=== PATIENT | male | born 2000 | race Two or more races ===

== ENCOUNTER 2022-06-02 20:17 | Inpatient (IN) | payer OTHER, SELFPAY ==
[2022-06-02 20:20] VITALS: BP 158/74; PULSE 84; RESP 16; TEMP 36; O2SAT 97; BMI 31.5
[2022-06-02 20:21] VITALS: BP 158/74; PULSE 84; RESP 16; TEMP 36; O2SAT 97
--- NOTE | 2022-06-02 20:57 | CT_ITS ---
INDICATION: Lower abdominal pain beginning 2 weeks ago. At first intermittent. Fever last night. Vomiting and diarrhea with elevated white count. Takes medications for rheumatoid arthritis. EXAMINATION: CT ABDOMEN AND PELVIS WITH CONTRAST - CT Abdomen And Pelvis W/ Contrast Injection TECHNIQUE: Helically acquired images were obtained of the abdomen and pelvis following IV contrast. A radiation dose optimization technique was used for this scan. IV Contrast dosage and agent: 100 mL of Isovue 370 Oral contrast: With COMPARISON: None. FINDINGS: LOWER CHEST: Lung bases are clear. No cardiomegaly or pericardial effusion. LIVER: Homogeneous. No focal mass. GALLBLADDER AND BILIARY TREE: No calcified gallstones. No gallbladder distension or wall edema. No intra- or extrahepatic biliary ductal dilation. PANCREAS: No focal cystic or solid mass. SPLEEN: Normal size without focal cystic or solid mass. ADRENAL GLANDS: No nodules. KIDNEYS AND URETERS: Normal renal size and position. No hydronephrosis. Normal visualized ureters. PERITONEUM: No ascites or free air. No other fluid collection. BOWEL: Normal stomach. Normal small bowel. Laboratory change is seen involving the cecum. There is multiple prominent lymph nodes in the cecal mesocolon. The remainder of the colon is unremarkable. Possibility of appendicitis cannot be entirely ruled out although the appendix is obscured by the inflammatory process. LYMPH NODES: No enlarged mesenteric or retroperitoneal lymph nodes. VESSELS: Aorta is non-dilated. URINARY BLADDER: Unremarkable. REPRODUCTIVE ORGANS: Normal prostate. ABDOMINAL WALL: No discrete abdominal or pelvic wall hernia. BONES: No lytic or blastic abnormality. CT/Abdomen/Pelvis WITH Contrast IMPRESSION: Inflammatory changes involving the cecum. The appendix is not seen and the possibility of the findings are secondary to appendicitis cannot be entirely ruled out but thought less likely. Electronically Signed: Calos Medina DO at 23:02 EDT Reading Location ID and State: [address] [place] [address] Tel [phone], Service support ,
[2022-06-02 21:12] LABS: Bacteria 0 SEEN /hpf (None Seen); Mucous, Urine 0 SEEN /hpf (<or=2+)
[2022-06-02 21:17] LABS: Absolute Lymphocyte Count 0.92 X10^3/uL (0.83-4.51); Basophil# 0.04 X10^3/uL; Basophil% 0.2 % (0-1); Eosinophil# 0.05 X10^3/uL; Eosinophils% 0.2 % (0-5); Hematocrit 43.9 % (40-54); Lymphocyte # 0.92 X10^3/ul (0.83-4.51); Lymphocyte % 4.3 % (19-41); Mean Corp Hgb Conc 34.2 g/dL (32-36); Mean Corpuscular Hgb 29.5 pg (27.0-32.0); Mean Corpuscular Volume 86.4 fL (80-94); Mean Platelet Vol. 10.3 fl (6.2-12.0); Monocyte# 2.39 X10^3/uL; Monocyte% 11.1 % (0-10); NRBC Flagged by Analyzer 0 % (0-5); Neutrophil # 17.99 X10^3/uL (2.7-7.7); Neutrophil % 83.8 % (47-70); POSITIVE DIFFERENTIAL YES; Platelet Count 361 K/mm3 (150-450); RBC Distribution Width CV 13.8 % (11.6-14.6); RBC Distribution Width SD 43.4 fl (35.1-43.9); Red Blood Count 5.08 M/mm3 (4.6-6.2); White Blood Count 21.5 K/mm3 (4.4-11.0)
[2022-06-02] MEDS: Ondansetron 4 MG/2 ML Vial IV (21:26)
[2022-06-02] MEDS: 0.9% Normal Saline 1,000 ML 1000 ML IV (21:30)
[2022-06-02 21:31] LABS: Color, Urine Yellow (Yellow); Glucose, Dipstick Normal (Normal); Leukocyte Esterase-Dipstick 25 /ul (Negative); Nitrite-Dipstick Negative (Negative); Occult Blood-Urine 10 /ul (Negative); Protein-Dipstick 100 mg/dl (Negative); Specific Gravity, Urine 1.015 (1.002-1.030); Urine Clarity Sl. Cloudy (Clear); Urine Urobilinogen 8 mg/dl (Normal)
[2022-06-02 21:33] LABS: Differential Indicated SCAN CRITERIA MET
[2022-06-02 21:41] LABS: Urine Bilirubin Dipstick 1 mg/dL (Negative)
[2022-06-02 21:42] LABS: Ketone-Dipstick 150 mg/dl (Negative)
[2022-06-02 21:43] LABS: Red Blood Cells-Urine 0-5 SEEN /hpf (0-5); Squamous Epithelial Cells - UA 0-5 SEEN /hpf (0-5); White Blood Cells 0-5 SEEN /hpf (0-5)
[2022-06-02 21:46] LABS: ALB/GLOB Ratio 0.7 RATIO (0.9-2.4); AST(SGOT) 9 U/L (15-37); Alanine Aminotransfer ALT/SGPT 13 U/L (16-61); Albumin, Serum 3.2 g/dL (3.2-5.0); Alkaline Phosphatase 100 U/L (45-117); Anion Gap 12 (5-15); BUN 9 mg/dL (7-18); BUN/Creat Ratio 12.3 RATIO (10-20); Calcium,Total 9.4 mg/dL (8.5-10.1); Chloride 103 mmol/L (98-107); Creatinine, Serum 0.73 mg/dL (0.70-1.30); EST Glomerular Filtration Rate 146 mL/min (>60); Est Glom Filt Rate - Afr Amer 176 mL/min (>60); Estimated Creatinine Clearance 168.06 ml/min; Globulin 4.8 g/dL (2.2-4.2); Glucose 100 mg/dL (74-106); Potassium 3.6 mmol/L (3.5-5.1); Sodium Level 136 mmol/L (136-145)
[2022-06-02 22:09] LABS: Differential Comment SCANNED
[2022-06-02 22:17] VITALS: BP 122/71; PULSE 81; RESP 16; O2SAT 99
[2022-06-02 23:39] VITALS: BP 120/70; PULSE 89; RESP 16; TEMP 36.8; O2SAT 100
--- NOTE | 2022-06-02 23:47 | ED.VIS.GI ---
HPI HPI - GI History of Present Illness Chief Complaint: Abd Pain Abdominal Pain/Flank Pain Onset: Weeks (2) Context: Gradual Onset Timing: Continuous Quality: Aching Location: RLQ Worsened by: - (Pressure and pushing on the area) Relieved by: - (Heating pad) Nausea/Vomiting/Emesis GI Symptom: Positive for Nausea and Vomiting Diarrhea/Melena/Hematochezia GI Symptom: Positive for Diarrhea; Negative for Melena or Hematochezia Associated Symptoms Associated Symptoms: Negative for Dysuria, Frequency or Hematuria Narrative Narrative: Patient presents with abdominal pain, nausea, vomiting, and diarrhea that became worse yesterday. Patient states he has been having some mild abdominal pain for the past couple weeks. Patient states that his pain is mainly in the right lower abdomen. Patient states he has had some pain in the left lower abdomen but the right is much worse. Patient describes his pain as aching. Patient states it is worse whenever he pushes on the area or applies pressure. Patient states it is better with heat. Patient admits to some nausea and vomiting. Patient admits to decreased appetite. Patient admits to some diarrhea. Patient denies any hematemesis or coffee-ground emesis. Patient denies any melena or hematochezia. Patient denies any urinary complaints. [facility] Medical History (Updated 06/03/22 @ 01:[address] Sunil Jones DO) Rheumatoid arthritis Home Medications Orencia 06/02/22 [History Last Taken Unknown] folic acid 06/02/22 [History Last Taken Unknown] methotrexate 06/02/22 [History Last Taken Unknown] Allergy/AdvReac Type Severity Reaction Status Date / Time ANTS Allergy Rash Uncoded 06/02/22 20:18 PEACHES Allergy Swelling Uncoded 06/02/22 20:18 Surgical History (Updated 06/02/22 @ 23:[address] Sunil Jones DO) [place] teeth extracted Social History Smoking Status: Never smoker ROS ROS ED Constitutional Constitutional ED: Reports fever(s); Denies chills Eyes Eyes: Denies blurry vision or change in vision ENT ENT ED: Denies rhinorrhea or sore throat Cardiovascular Cardiovascular: Denies chest pain or palpitations Respiratory/Chest Respiratory/Chest: Denies cough or dyspnea Gastrointestinal Gastrointestinal: Reports abdominal pain, diarrhea, nausea and vomiting; Denies melena Genitourinary Genitourinary ED: Denies dysuria or hematuria Musculoskeletal Musculoskeletal: Denies back pain or neck pain Integumentary Denies abscess or rash Neurologic Neurologic: Denies headache(s) or weakness Allergic/Immunologic Allergic/Immunologic ED: Denies mouth swelling or urticaria EXAM Physical Exam Const Vital Signs: 06/02/22 20:20 06/02/22 20:21 06/02/22 22:17 Temperature 96.8 F L 96.8 F L Temperature Source Temporal Temporal Pulse Rate 84 84 81 Respiratory Rate 16 16 16 Blood Pressure 158/74 H 158/74 H 122/71 H Blood Pressure Mean 102 102 88 Pulse Ox 97 97 99 Oxygen Delivery Method Room Air Room Air Room Air 06/02/22 23:39 06/03/22 00:33 Temperature 98.2 F Temperature Source Oral Pulse Rate 89 79 Respiratory Rate 16 16 Blood Pressure 120/70 133/79 H Blood Pressure Mean 86 97 Pulse Ox 100 98 Oxygen Delivery Method Room Air Positive well nourished and well developed General Appearance ED: well developed HEENT Reports moist mucous membranes Neck supple and no JVD Resp normal respiratory effort and clear to auscultation bilaterally Cardio regular rate, regular rhythm and no murmurs GI normal to inspection, nondistended, normoactive bowel sounds Palpation: soft and tender RLQ, Obturator sign and Rovsing's sign (Mild); Negative for guarding or rebound tenderness present Extremity normal to inspection General Extremety ED: Negative for edema or tenderness General Extremity: Negative for edema Neuro oriented x3, CN's II-XII intact bilaterally and no sensory deficits noted Sensorium / Orientation: alert Motor Exam: strength 5/5 throughout Psych mental status grossly normal Skin no rashes or lesions noted MDM MDM MDM Narrative Medical decision making narrative: Patient was given IV fluids and Zofran here. CBC shows a leukocytosis of 21.5. Comprehensive metabolic profile was essentially within normal limits. Urinalysis shows ketones of 150 but there is no evidence of urinary tract infection or hematuria. CT scan of the abdomen pelvis was obtained. There are inflammatory changes of the cecum. The appendix was not well visualized. This was interpreted by the radiologist and reviewed by myself. Case was discussed with Dr. Cavanaugh from general surgery. He will be into evaluate the patient. Did not want me to start antibiotics until he saw the patient. Patient was advised of the plan. He is agreeable with this. Dr. Cavanaugh evaluated the patient. He will admit the patient to his service. He recommended obtaining stool studies and starting Zosyn. He also recommended consultation to the hospitalist to follow along with his rheumatoid arthritis medications. Hospitalist was paged. Patient will be admitted. Patient understood and was agreeable with the plan. All questions were answered. Lab Data Attestation: I reviewed the patient's lab results. Labs: Laboratory Results - last 24 hr 06/02/22 06/02/22 06/02/22 20:48 20:48 20:48 WBC 21.5 H RBC 5.08 Hgb 15.0 Hct 43.9 MCV 86.4 MCH 29.5 MCHC 34.2 RDW Std Deviation 43.4 RDW Coeff of Willy 13.8 Plt Count 361 MPV 10.3 Immature Gran % (Auto) 0.400 Neut % (Auto) 83.8 H Lymph % (Auto) 4.3 L [place] % (Auto) 11.1 H Eos % (Auto) 0.2 Baso % (Auto) 0.2 Absolute Neuts (auto) 18.0 H Absolute Lymphs (auto) 0.92 Nucleated RBC % 0 Differential Comment SCANNED Diff Path Review May foll Sodium 136 Potassium 3.6 Chloride 103 Carbon Dioxide 21.0 Anion Gap 12 BUN 9 Creatinine 0.73 Estim Creat Clear Calc 168.06 Est GFR (MDRD) Af Amer 176 Est GFR (MDRD) Non-Af 146 BUN/Creatinine Ratio 12.3 Glucose 100 Calcium 9.4 Total Bilirubin 1.00 AST 9 L ALT 13 L Alkaline Phosphatase 100 Total Protein 8.0 Albumin 3.2 Globulin 4.8 H Albumin/Globulin Ratio 0.7 L Urine Color Yellow Urine Clarity Sl. Cloudy Urine pH 6.0 Ur Specific [place] 1.015 Urine Protein 100 H Urine Glucose (UA) Normal Urine Ketones 150 A* Urine Occult Blood 10 H Urine Nitrite Negative Urine Bilirubin 1 H Urine Urobilinogen 8 H Ur Leukocyte Esterase 25 H Urine RBC 0-5 SEEN Urine WBC 0-5 SEEN Ur Squamous Epith Cells 0-5 SEEN Urine Bacteria 0 SEEN Urine Mucus 0 SEEN Radiography Diagnostic Testing: Clinical Impression(s) from Imaging Studies Abdomen/Pelvis CT 06/02/22 20:57 IMPRESSION: Inflammatory changes involving the cecum. The appendix is not seen and the possibility of the findings are secondary to appendicitis cannot be entirely ruled out but thought less likely. Electronically Signed: Calos Medina DO at 23:02 EDT Reading Location ID and State: [address] [place] [address] Tel [phone], Service support , Discharge Plan Dx/Rx/DC Orders Clinical Impression: Right lower quadrant abdominal pain, Leukocytosis, Rheumatoid arthritis Disposition Disposition: Acute Care Hospital [facility]
[2022-06-03] VITALS (7 sets, daily range): BP systolic 106–138; BP diastolic 51–89; PULSE 79–107; RESP 16–18; TEMP 36.7–39.2; O2SAT 98–100; BMI 27.2
--- NOTE | 2022-06-03 01:01 | PCM.HP.STD ---
HPI - General General Date of Admission: 06/03/22 Date of Service: 06/03/22 Chief Complaint: Right lower quadrant abdominal pain HPI Narrative CLAUS ZHANG, is a 21 M, w PMH of RA on Methotrexate and Orencia, who presents a history of right lower quadrant abdominal pain that has gradually progressed in intensity and over the last 24 to 48 hours become associated with anorexia, nausea, vomiting, nonbloody diarrhea, and low-grade fevers. He states that initially he had right lower quadrant pain (it was nonmigratory) associated with fatigue and weakness. When the intensity grew into begin vomiting with low-grade fevers he decided to seek evaluation. He reports a T-max of 100.0 Fahrenheit at home. ER work-up is notable for CBC that demonstrates a significantly elevated white blood cell count at 21,000. CT imaging was obtained of the abdomen pelvis with p.o. and IV contrast. This shows rather diffuse inflammation of the cecum and several prominent mesenteric lymph nodes. The appendix is nonvisualized and radiology reports segmental colonic inflammation with appendicitis felt to be less likely, but based on nonvisualization and the extensive inflammatory process could not exclude appendicitis. Surgery is asked to evaluate for this possibility. Patient has a history of rheumatoid arthritis on methotrexate and Orencia. He reports this diagnosis was made early on in life?approximately age 9-10. He states that he has remained on a relatively stable dose of these medications. He denies any sick contacts. 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 His ethnic background is [place] and [place]. He denies any family history of inflammatory bowel disease, diverticulitis, or colon cancer. [facility] Medical History (Updated 06/03/22 @ 01:[address] Sunil Jones, ) Rheumatoid arthritis Home Medications Orencia 06/02/22 [History Last Taken Unknown] folic acid 06/02/22 [History Last Taken Unknown] methotrexate 06/02/22 [History Last Taken Unknown] Allergy/AdvReac Type Severity Reaction Status Date / Time ANTS Allergy Rash Uncoded 06/02/22 20:18 PEACHES Allergy Swelling Uncoded 06/02/22 20:18 Surgical History (Updated 06/02/22 @ 23:[address] Sunil Jones, DO) [place] teeth extracted Social History Smoking Status: Never smoker ROS Constitutional Constitutional: Reports anorexia, fatigue, fever(s), malaise and weakness Gastrointestinal Gastrointestinal: Reports abdominal pain, diarrhea, nausea and vomiting; Denies hematemesis, hematochezia or melena Genitourinary Genitourinary: Denies dysuria, urinary frequency or urinary urgency Hematologic/Lymphatic Hematologic/Lymphatic: Denies lymphadenopathy Vital Signs Vital Signs Vital Signs: 06/02/22 20:20 06/02/22 20:21 06/02/22 22:17 Temperature 96.8 F L 96.8 F L Temperature Source Temporal Temporal Pulse Rate 84 84 81 Respiratory Rate 16 16 16 Blood Pressure 158/74 H 158/74 H 122/71 H Blood Pressure Mean 102 102 88 Pulse Ox 97 97 99 Oxygen Delivery Method Room Air Room Air Room Air 06/02/22 23:39 06/03/22 00:33 Temperature 98.2 F Temperature Source Oral Pulse Rate 89 79 Respiratory Rate 16 16 Blood Pressure 120/70 133/79 H Blood Pressure Mean 86 97 Pulse Ox 100 98 Oxygen Delivery Method Room Air Weight Weight: 220 lb Body Mass Index (BMI) 31.5 Physical Exam Const alert, oriented x3 and no apparent distress General Appearance: cooperative Resp No normal respiratory effort GI GI Narrative: Numerous abdominal striae are present. No scars. Nondistended. Soft and minimally tender to palpation over McBurney's point (patient reports a baseline tenderness only 4/10 that goes to a 6/10 with palpation). He describes some mild rebound tenderness. Negative obturator sign. Mildly positive psoas sign. Inspection: Negative for abdominal distention Results Lab / Micro Data Result Diagrams: 06/02/22 20:48 06/02/22 20:48 Labs: Laboratory Results - last 24 hr 06/02/22 20:48: WBC 21.5 H, RBC 5.08, Hgb 15.0, Hct 43.9, MCV 86.4, MCH 29.5, MCHC 34.2, RDW Std Deviation 43.4, RDW Coeff of Willy 13.8, Plt Count 361, MPV 10.3, Immature Gran % (Auto) 0.400, Neut % (Auto) 83.8 H, Lymph % (Auto) 4.3 L, [place] % (Auto) 11.1 H, Eos % (Auto) 0.2, Baso % (Auto) 0.2, Absolute Neuts (auto) 18.0 H, Absolute Lymphs (auto) 0.92, Nucleated RBC % 0, Differential Comment SCANNED, Diff Path Review November06/02/22 20:48: Sodium 136, Potassium 3.6, Chloride 103, Carbon Dioxide 21.0, Anion Gap 12, BUN 9, Creatinine 0.73, Estim Creat Clear Calc 168.06, Est GFR (MDRD) Af Amer 176, Est GFR (MDRD) Non-Af 146, BUN/Creatinine Ratio 12.3, Glucose 100, Calcium 9.4, Total Bilirubin 1.00, AST 9 L, ALT 13 L, Alkaline Phosphatase 100, Total Protein 8.0, Albumin 3.2, Globulin 4.8 H, Albumin/Globulin Ratio 0.7 L 06/02/22 20:48: Urine Color Yellow, Urine Clarity Sl. Cloudy, Urine pH 6.0, Ur Specific [place] 1.015, Urine Protein 100 H, Urine Glucose (UA) Normal, Urine Ketones 150 A*, Urine Occult Blood 10 H, Urine Nitrite Negative, Urine Bilirubin 1 H, Urine Urobilinogen 8 H, Ur Leukocyte Esterase 25 H, Urine RBC 0-5 SEEN, Urine WBC 0-5 SEEN, Ur Squamous Epith Cells 0-5 SEEN, Urine Bacteria 0 SEEN, Urine Mucus 0 SEEN Radiology Impression Abdomen/Pelvis CT 06/02/22 20:57 IMPRESSION: Inflammatory changes involving the cecum. The appendix is not seen and the possibility of the findings are secondary to appendicitis cannot be entirely ruled out but thought less likely. Electronically Signed: Calos Medina DO at 23:02 EDT Reading Location ID and State: [facility] / [place] Tel [phone], Service support , Assessment & Plan Assessment/Plan (1) Right lower quadrant abdominal pain: PLAN: This is a 21-year-old male who presents with a several week history of right lower quadrant pain that has progressively intensified and become associated with low-grade fevers, nausea, vomiting, diarrhea, and anorexia. ED work-up remarkable for significant leukocytosis with markedly abnormal appearance to patient's cecum and nonvisualization of the appendix. On exam patient has only minimally increased tenderness over McBurney's point and area of presumed inflammation with palpation. Because of this I do not believe the patient has peritonitis. I find his whole presentation very atypical for appendicitis. Differential would include infectious colitis, typhlitis, appendicitis with contained perforation, early presentation of inflammatory bowel disease, mesenteric adenitis, or other. I have shared with patient that based on his exam I believe the best course of action would be to pursue conservative measures by collecting stool studies and initiating empiric antibiotic coverage. I would plan to conduct serial abdominal exams and see that patient has appropriate response to these antibiotics. Otherwise to take patient immediately to surgery, I would be concerned that intraoperative findings would lead to more surgery then would ultimately be justified at this point. Patient expresses understanding of this information and we will therefore proceed with the plan as follows: Neuro: As needed Dilaudid Pulm/CV: No current issues FEN/GI: Trend electrolytes with daily labs, n.p.o., serial abdominal exams : No current issues Heme/ID: Trend CBC, collect stool studies, initiate empiric antibiotic coverage with Zosyn, obtain medicine consult for advising on rheumatoid medications?would be inclined to hold these medications in anticipation of possible operation Endo: No current issues Proph: Apply SCDs Dispo: Admit to inpatient Charges/Coding Visit Charges Inpatient E&M: 13486 Init Hosp L2
--- NOTE | 2022-06-03 01:06 | PCM.PN.HOSP ---
Subjective Subjective Patient is a 21-year-old white male who presented to the emergency department [facility] on 06/02/2022 complaining of abdominal pain in the right lower quadrant, vomiting, and diarrhea that became worse the day prior to it presentation. He indicated he been having some mild abdominal pain for the past couple weeks but it became more severe and that is why he came the emergency department. He reported the pain was aching in nature and worse whenever it is palpated. He indicated it was improved with heat. He had decreased appetite but denied any hematemesis. He also had no melena or hematochezia. He was found to have a leukocytosis of 21.5 the rest of his labs were essentially normal. His urinalysis shows ketones but no evidence of urinary tract infection. A CT of the abdomen pelvis was performed and shows inflammatory changes near the cecum but the appendix is not well visualized. General surgery was consulted and the plan is admit to general surgery and to obtain stool studies and start Zosyn. It was requested that we follow along for his rheumatoid arthritis. Patient was seen in the emergency department. He is still having some right lower quadrant tenderness. Nausea seems to be a bit improved. He appears comfortable and nontoxic at the time of my evaluation. He indicates he has not been taking his Orencia lately because he is ran out and shipment is pending. He is also unable to recall the dose of his methotrexate. Objective Data Objective Data Vital Signs: Vital Signs Temp Pulse Resp BP Pulse Ox O2 Del Method 98.2 F 79 16 133/79 H 98 Room Air 06/02/22 23:39 06/03/22 00:33 06/03/22 00:33 06/03/22 00:33 06/03/22 00:33 06/03/22 00:33 Oxygen Delivery Method Room Air Weight: 99.79 kg Body Mass Index (BMI) 31.5 Intake & Output: Intake and Output for Last 24 Hours 06/01/22 06/02/22 06/03/22 23:59 23:59 23:59 Intake Total 1000 / 1000 Balance 1000 / 1000 Lab / Micro Data Result Diagrams: 06/02/22 20:48 06/02/22 20:48 Labs: Laboratory Results - last 24 hr 06/02/22 20:48: WBC 21.5 H, RBC 5.08, Hgb 15.0, Hct 43.9, MCV 86.4, MCH 29.5, MCHC 34.2, RDW Std Deviation 43.4, RDW Coeff of Willy 13.8, Plt Count 361, MPV 10.3, Immature Gran % (Auto) 0.400, Neut % (Auto) 83.8 H, Lymph % (Auto) 4.3 L, [place] % (Auto) 11.1 H, Eos % (Auto) 0.2, Baso % (Auto) 0.2, Absolute Neuts (auto) 18.0 H, Absolute Lymphs (auto) 0.92, Nucleated RBC % 0, Differential Comment SCANNED, Diff Path Review November06/02/22 20:48: Sodium 136, Potassium 3.6, Chloride 103, Carbon Dioxide 21.0, Anion Gap 12, BUN 9, Creatinine 0.73, Estim Creat Clear Calc 168.06, Est GFR (MDRD) Af Amer 176, Est GFR (MDRD) Non-Af 146, BUN/Creatinine Ratio 12.3, Glucose 100, Calcium 9.4, Total Bilirubin 1.00, AST 9 L, ALT 13 L, Alkaline Phosphatase 100, Total Protein 8.0, Albumin 3.2, Globulin 4.8 H, Albumin/Globulin Ratio 0.7 L 06/02/22 20:48: Urine Color Yellow, Urine Clarity Sl. Cloudy, Urine pH 6.0, Ur Specific [place] 1.015, Urine Protein 100 H, Urine Glucose (UA) Normal, Urine Ketones 150 A*, Urine Occult Blood 10 H, Urine Nitrite Negative, Urine Bilirubin 1 H, Urine Urobilinogen 8 H, Ur Leukocyte Esterase 25 H, Urine RBC 0-5 SEEN, Urine WBC 0-5 SEEN, Ur Squamous Epith Cells 0-5 SEEN, Urine Bacteria 0 SEEN, Urine Mucus 0 SEEN Radiography Diagnostic Testing: Radiology Impression Abdomen/Pelvis CT 06/02/22 20:57 IMPRESSION: Inflammatory changes involving the cecum. The appendix is not seen and the possibility of the findings are secondary to appendicitis cannot be entirely ruled out but thought less likely. Electronically Signed: Calos Medina DO at 23:02 EDT Reading Location ID and State: [address] [place] [address] Tel [phone], Service support , Physical Exam Const alert, oriented x3, no apparent distress and well nourished Constitutional Narrative: Young white male lying in bed, very pleasant, nontoxic, appears comfortable at this time HEENT head/scalp atraumatic and moist oral mucous membranes Head and Scalp: normocephalic Resp normal respiratory effort, no retractions, no use of accessory muscles and clear to auscultation bilaterally Auscultation: Negative for crackles, rales, rhonchi or wheezes Cardio regular rate, regular rhythm, S1 normal heart sound, S2 normal heart sound, no murmurs, no rub, no gallops and no clicks GI GI Narrative: Right lower quadrant tenderness with some rebound, no distention, abdomen is soft, bowel sounds are normoactive Extremity no clubbing, cyanosis or edema Extremity Narrative: 2+ pedal pulses Neuro oriented x3, moves all extremities, no focal motor deficits and no sensory deficits noted Speech: speech normal Psych affect normal Assessment & Plan Assessment/Plan (1) Right lower quadrant abdominal pain: (2) Leukocytosis: (3) Rheumatoid arthritis: PLAN: Plan Right lower quadrant pain -CT abdomen pelvis shows inflammatory changes in the cecum -Stool studies pending -Patient initiated on Zosyn -Pain management per primary service--> Dr. Cavanaugh Leukocytosis -Antibiotics as above -Stool studies pending History of rheumatoid arthritis -Patient takes Orencia at baseline -This is a once a week injectable -Hold for the time being -Continue home methotrexate--> will need to find out the dosing before we can initiate this -Continue home folic acid--> anticipate this will be 1 mg but will need to clarify prior to initiating -Patient is unable to remember his dosing for methotrexate or folic acid at this time DVT prophylaxis -Low risk with age -Encourage ambulation Charges/Coding Visit Charges Inpatient E&M: 78849 Subs Hosp L2
[2022-06-03 01:40] LABS: Magnesium 2.2 mg/dL (1.6-2.6)
[2022-06-03] MEDS: 0.9% Normal Saline 1,000 ML 125 ML IV ×3 (02:52→18:05)
--- NOTE | 2022-06-03 07:25 | PCM.PN.HOSP ---
Subjective Subjective Follow-up for right lower quadrant pain. Patient admitted with severe abdominal pain which is ongoing for 2 weeks but got worse for last 2 days. Objective Data Objective Data Vital Signs: Vital Signs Temp Pulse Resp BP Pulse Ox O2 Del Method 98.8 F 95 18 138/89 H 100 Room Air 06/03/22 02:43 06/03/22 02:43 06/03/22 02:43 06/03/22 02:43 06/03/22 02:43 06/03/22 02:43 Oxygen Delivery Method Room Air Weight: 190 lb 0.615 oz Body Mass Index (BMI) 27.2 Intake & Output: Intake and Output for Last 24 Hours 06/01/22 06/02/22 06/03/22 23:59 23:59 23:59 Intake Total 1000 / 1000 100.5 / 100.5 Output Total 0 / 0 Balance 1000 / 1000 100.5 / 100.5 Lab / Micro Data Result Diagrams: 06/02/22 20:48 06/02/22 20:48 Labs: Laboratory Results - last 24 hr 06/02/22 20:41: Phosphorus 3.0, Magnesium 2.2 06/02/22 20:48: WBC 21.5 H, RBC 5.08, Hgb 15.0, Hct 43.9, MCV 86.4, MCH 29.5, MCHC 34.2, RDW Std Deviation 43.4, RDW Coeff of Willy 13.8, Plt Count 361, MPV 10.3, Immature Gran % (Auto) 0.400, Neut % (Auto) 83.8 H, Lymph % (Auto) 4.3 L, [place] % (Auto) 11.1 H, Eos % (Auto) 0.2, Baso % (Auto) 0.2, Absolute Neuts (auto) 18.0 H, Absolute Lymphs (auto) 0.92, Nucleated RBC % 0, Differential Comment SCANNED, Diff Path Review November06/02/22 20:48: Sodium 136, Potassium 3.6, Chloride 103, Carbon Dioxide 21.0, Anion Gap 12, BUN 9, Creatinine 0.73, Estim Creat Clear Calc 168.06, Est GFR (MDRD) Af Amer 176, Est GFR (MDRD) Non-Af 146, BUN/Creatinine Ratio 12.3, Glucose 100, Calcium 9.4, Total Bilirubin 1.00, AST 9 L, ALT 13 L, Alkaline Phosphatase 100, Total Protein 8.0, Albumin 3.2, Globulin 4.8 H, Albumin/Globulin Ratio 0.7 L 06/02/22 20:48: Urine Color Yellow, Urine Clarity Sl. Cloudy, Urine pH 6.0, Ur Specific [place] 1.015, Urine Protein 100 H, Urine Glucose (UA) Normal, Urine Ketones 150 A*, Urine Occult Blood 10 H, Urine Nitrite Negative, Urine Bilirubin 1 H, Urine Urobilinogen 8 H, Ur Leukocyte Esterase 25 H, Urine RBC 0-5 SEEN, Urine WBC 0-5 SEEN, Ur Squamous Epith Cells 0-5 SEEN, Urine Bacteria 0 SEEN, Urine Mucus 0 SEEN Micro: Microbiology 06/03/22 01:50 Stool Enteric Bacteriology - Preliminary 06/03/22 01:50 Stool C. difficile DNA Amplification - Final Radiography Diagnostic Testing: Radiology Impression Abdomen/Pelvis CT 06/02/22 20:57 IMPRESSION: Inflammatory changes involving the cecum. The appendix is not seen and the possibility of the findings are secondary to appendicitis cannot be entirely ruled out but thought less likely. Electronically Signed: Calos Medina DO at 23:02 EDT Reading Location ID and State: [address] [place] [address] Tel [phone], Service support , Physical Exam Narrative The patient was admitted with right lower quadrant abdominal pain associated with nausea, vomiting, nonbloody diarrhea low-grade fever, T-max 100 Fahrenheit. RLQ for 2 weeks then progressed worse over 24 to 48 hours prior to admission. CT abdomen and pelvis with p.o. and IV contrast was done in ED and individually reviewed. It shows diffuse inflammation of the cecum which reported as segmental colonic inflammation and prominent mesenteric lymph nodes. Appendicitis less likely. Patient is admitted and surgical service. Patient also has history of rheumatoid arthritis diagnosed at age of 9-10. 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 Currently no pain Physical exam General: Alert, Oriented x3, Cooperative HEENT: Atraumatic, PERRLA, EOMI, Normocephalic Oral: Oral mucosa moist. No Gingival or Mucosal Lesions/ Ulcerations Neck: Supple, No JVD, Negative Carotid Bruits Lungs: Air entry diminished in bilateral lung bases. No crepitation/rhonchi Cardiovascular: Regular rate, Regular Rhythm, Normal S1, Normal S2, No murmurs Abdomen: Bowel Sounds Present, Soft, Non Tender, Non-Distended : No renal angle tenderness. No suprapubic tenderness. Extremities: No edema, Capillary Refill Less than 3 Seconds Skin: No rashes, No breakdown Musculoskeletal: No Tenderness over his small bony joints especially on bilateral wrist. No synovitis. ROM full. Muscle strength 5/5 at major joints. Neurological: Cranial nerves II-XII grossly intact, DTR 2+/4 and Symmetrical, Neuro grossly intact Psych/Mental Status: Normal Affect, Appropriate. Assessment & Plan Assessment/Plan (1) Right lower quadrant abdominal pain: (2) Leukocytosis: (3) Rheumatoid arthritis: PLAN: Plan This 21-year-old gentleman admitted with right lower quadrant abdominal pain progressively worsening for 2 weeks along with fever, nausea, vomiting and nonbloody diarrhea. 1 acute RLQ abdominal pain due to acute C. difficile colitis: Patient is being admitted MedSurg floor. Patient has significant leukocytosis. Stool for C. difficile antigen AMB positive. Negative C. difficile toxin, positive PCR. Enteric bacteriology panel negative. Patient did not had any exposure of his knowledge but he lives in dormitory. Discussed with surgeon Dr. Cavanaugh and agreed on vancomycin 125 mg p.o. every 6 hourly for 10 days. I also discussed with Dr. Castelan as patient on immunosuppressant methotrexate and abatacept and he said to talk with seedling puller regarding immunosuppressant/biologic medications 2. Rheumatoid arthritis on immunosuppressant medication: Patient on methotrexate, folic acid and abatacept (Orencia once a week injectable medicine) as home medication. Patient has history of bilateral wrist synovitis and arthritis which is well controlled with these medications. Abatacept and methotrexate is immunosuppressant and will hold it for now. Patient follows seedling puller in [place]. We will try to contact him. 3. DVT low risk Total time of the visit including total time spent in counseling or coordination of care, (more than 50% of the total time, spent in obtaining medical information from nurses and other ancillary care providers,explaining to the patient about labs, imaging, diagnosis and management of active complex medical conditions), discussion with surgeon, ID, review of labs and imaging is 40 minutes. Charges/Coding Visit Charges Inpatient E&M: 06898 Subs Hosp L3
--- NOTE | 2022-06-03 10:40 | CASEMGMT ---
RN ISHMAEL Face to Face with patient for initial transition planning/care coordination assessment. RN CM introduced self and role at [facility]. Patient lying in bed, alert and oriented. Patient willing to participate in assessment and is able to answer all questions appropriately. Care providers, pharmacy, and demographics verified. Patient wishes to discharge home, denies need for home health at this time. Patient states he has no further needs or concerns at this time. CM to follow for discharge planning needs that may arise. PCP: Has PCP back in [place], follows with [facility] Specialists: none Preferred Pharmacy: [facility] Insurance: [employer] Prescription Benefit: yes Living Will/HPOA: none LNOK: Mother Living Arrangements: Patient is currently a student at the [employer] staying in a 2nd floor dorm. Patient states he is independent and able to ambulate stairs. Transportation: [employer] or friend DME/HHC: Patient denies DME. Disposition Plan: Patient to discharge home with family support and follow-up plans in place. Diane LUIS, RN, CM
--- NOTE | 2022-06-03 10:48 | PCM.PN.SRG ---
Subjective Subjective Patient seen and examined during AM rounds. He reports ongoing abdominal discomfort and minimal appetite. He reports that he did have a bowel movement was able to submit a stool sample in his ER visit earlier this morning. He also reports that a doctor came to his room to tell him that he has infectious colitis. Objective Data Objective Data Vital Signs: Vital Signs Temp Pulse Resp BP Pulse Ox O2 Del Method 98.8 F 95 18 138/89 H 100 Room Air 06/03/22 02:43 06/03/22 02:43 06/03/22 02:43 06/03/22 02:43 06/03/22 02:43 06/03/22 02:43 Oxygen Delivery Method Room Air Weight: 190 lb 0.615 oz Body Mass Index (BMI) 27.2 Intake & Output: Intake and Output for Last 24 Hours 06/01/22 06/02/22 06/03/22 23:59 23:59 23:59 Intake Total 1000 / 1000 100.5 / 100.5 Output Total 0 / 0 Balance 1000 / 1000 100.5 / 100.5 Lab / Micro Data Result Diagrams: 06/02/22 20:48 06/02/22 20:48 Labs: Laboratory Results - last 24 hr 06/02/22 20:41: Phosphorus 3.0, Magnesium 2.2 06/02/22 20:48: WBC 21.5 H, RBC 5.08, Hgb 15.0, Hct 43.9, MCV 86.4, MCH 29.5, MCHC 34.2, RDW Std Deviation 43.4, RDW Coeff of Willy 13.8, Plt Count 361, MPV 10.3, Immature Gran % (Auto) 0.400, Neut % (Auto) 83.8 H, Lymph % (Auto) 4.3 L, [place] % (Auto) 11.1 H, Eos % (Auto) 0.2, Baso % (Auto) 0.2, Absolute Neuts (auto) 18.0 H, Absolute Lymphs (auto) 0.92, Nucleated RBC % 0, Differential Comment SCANNED, Diff Path Review November06/02/22 20:48: Sodium 136, Potassium 3.6, Chloride 103, Carbon Dioxide 21.0, Anion Gap 12, BUN 9, Creatinine 0.73, Estim Creat Clear Calc 168.06, Est GFR (MDRD) Af Amer 176, Est GFR (MDRD) Non-Af 146, BUN/Creatinine Ratio 12.3, Glucose 100, Calcium 9.4, Total Bilirubin 1.00, AST 9 L, ALT 13 L, Alkaline Phosphatase 100, Total Protein 8.0, Albumin 3.2, Globulin 4.8 H, Albumin/Globulin Ratio 0.7 L 06/02/22 20:48: Urine Color Yellow, Urine Clarity Sl. Cloudy, Urine pH 6.0, Ur Specific [place] 1.015, Urine Protein 100 H, Urine Glucose (UA) Normal, Urine Ketones 150 A*, Urine Occult Blood 10 H, Urine Nitrite Negative, Urine Bilirubin 1 H, Urine Urobilinogen 8 H, Ur Leukocyte Esterase 25 H, Urine RBC 0-5 SEEN, Urine WBC 0-5 SEEN, Ur Squamous Epith Cells 0-5 SEEN, Urine Bacteria 0 SEEN, Urine Mucus 0 SEEN Micro: Microbiology 06/03/22 01:50 Stool Enteric Bacteriology - Final 06/03/22 01:50 Stool C. difficile GDH Antigen & Toxins - Final 06/03/22 01:50 Stool C. difficile DNA Amplification - Final Radiography Diagnostic Testing: Radiology Impression Abdomen/Pelvis CT 06/02/22 20:57 IMPRESSION: Inflammatory changes involving the cecum. The appendix is not seen and the possibility of the findings are secondary to appendicitis cannot be entirely ruled out but thought less likely. Electronically Signed: Calos Medina DO at 23:02 EDT Reading Location ID and State: [address] [place] [address] Tel [phone], Service support , Physical Exam Const oriented x3 Constitutional Narrative: No distress at rest Resp normal respiratory effort GI GI Narrative: Tenderness with palpation of right lower quadrant Assessment & Plan Assessment/Plan (1) C. difficile colitis: PLAN: Patient with severe C. difficile colitis?as based on white blood cell count greater than 15,000 and radiographic appearance of the cecum. Patient has no history of recent antibiotic use or no proximity to healthcare settings so this should be a community-acquired infection. This is probably related to patient's relatively immunocompromise state and on both Orencia and methotrexate for rheumatoid arthritis. After conferencing with infectious disease and hospitalist service, we will plan to put patient on vancomycin 125 mg p.o. every 6 hours x10 days. (2) Right lower quadrant abdominal pain: PLAN: Given the above finding of C. difficile colitis, this makes a diagnosis of acute appendicitis much less likely and we will plan to pursue treatment for C. difficile with vancomycin p.o. monotherapy. We will continue serial abdominal exams. (3) Rheumatoid arthritis: PLAN: Patient on concurrent Orencia and methotrexate therapy. I have concerns about continuing these medications amidst a severe C. difficile infection. Infectious disease recommended conferencing with patient's primary temperature inspector about the severity of patient's rheumatoid arthritis before making any decision on holding these DMARD medications. Hospitalist service will plan to initiate this communication with patient's temperature inspector who is located in [place]. Charges/Coding Visit Charges Inpatient E&M: 57362 Subs Hosp L2
[2022-06-03] MEDS: HYDROmorphone 0.5 MG/0.5 ML SYRINGE IV ×2 (10:54→15:36)
[2022-06-03] MEDS: 0.9% Saline Lock 10 ML Syringe IV ×2 (10:54→15:35)
[2022-06-03] MEDS: Ondansetron 4 MG/2 ML Vial IV (10:55)
[2022-06-03] MEDS: Vancomycin 125 MG/5 ML Susp PO.SYRINGE PO ×2 (11:57→18:01)
[2022-06-03 12:39] LABS: Pathologist Review Reviewed
[2022-06-03] MEDS: Acetaminophen 500 MG Tablet PO (15:37)
[2022-06-04] VITALS (9 sets, daily range): BP systolic 116–142; BP diastolic 62–90; PULSE 92–104; RESP 18; TEMP 36.9–37.7; O2SAT 96–100
[2022-06-04] MEDS: Vancomycin 125 MG/5 ML Susp PO.SYRINGE PO ×4 (00:19→17:41)
[2022-06-04] MEDS: Acetaminophen 500 MG Tablet PO (00:22)
[2022-06-04] MEDS: 0.9% Normal Saline 1,000 ML 125 ML IV ×3 (02:04→19:24)
[2022-06-04 06:40] LABS: Absolute Lymphocyte Count 2.26 X10^3/uL (0.83-4.51); Absolute Neutrophil Count 12.6 X10^3/uL (2.0-7.7); Basophil# 0.03 X10^3/uL; Basophil% 0.2 % (0-1); Eosinophil# 0.02 X10^3/uL; Eosinophils% 0.1 % (0-5); Hematocrit 40.3 % (40-54); Hemoglobin 13.2 g/dL (13.0-16.5); Lymphocyte # 2.26 X10^3/ul (0.83-4.51); Lymphocyte % 13.1 % (19-41); Mean Corp Hgb Conc 32.8 g/dL (32-36); Mean Corpuscular Hgb 29.1 pg (27.0-32.0); Mean Corpuscular Volume 88.8 fL (80-94); Mean Platelet Vol. 10.9 fl (6.2-12.0); Monocyte# 2.22 X10^3/uL; Monocyte% 12.9 % (0-10); NRBC Flagged by Analyzer 0 % (0-5); Neutrophil % 73.2 % (47-70); POSITIVE DIFFERENTIAL YES; Platelet Count 345 K/mm3 (150-450); RBC Distribution Width CV 13.8 % (11.6-14.6); RBC Distribution Width SD 44.7 fl (35.1-43.9); Red Blood Count 4.54 M/mm3 (4.6-6.2); White Blood Count 17.2 K/mm3 (4.4-11.0)
[2022-06-04 06:48] LABS: Differential Indicated SCAN CRITERIA MET
[2022-06-04 07:08] LABS: Anion Gap 11 (5-15); BUN 2 mg/dL (7-18); BUN/Creat Ratio 3.5 RATIO (10-20); Calcium,Total 8.8 mg/dL (8.5-10.1); Chloride 105 mmol/L (98-107); Creatinine, Serum 0.58 mg/dL (0.70-1.30); EST Glomerular Filtration Rate 191 mL/min (>60); Est Glom Filt Rate - Afr Amer 231 mL/min (>60); Estimated Creatinine Clearance 211.52 ml/min; Glucose 89 mg/dL (74-106); Potassium 3.3 mmol/L (3.5-5.1); Sodium Level 138 mmol/L (136-145)
--- NOTE | 2022-06-04 08:19 | PN.HOSP_ITS ---
Subjective Subjective Follow-up for abdominal pain mostly due to C. difficile colitis Patient is still has abdominal pain mainly over right lower quadrant 5-7/10 intensity, mainly intermittent, colicky in nature. Has 2-3 liquid bowel mov ement. Objective Data Objective Data Vital Signs: Vital Signs Temp Pulse Resp BP Pulse Ox O2 Del Method 98.7 F 92 18 123/62 H 100 Room Air 06/04/22 05:10 06/04/22 05:10 06/04/22 05:10 06/04/22 05:10 06/04/22 05:10 06/04/22 05:10 Oxygen Delivery Method Room Air Weight: 190 lb 0.615 oz Body Mass Index (BMI) 27.2 Intake & Output: Intake and Output for Last 24 Hours 06/02/22 06/03/22 06/04/22 23:59 23:59 23:59 Intake Total 1000 / 1000 2930.5 / 2930.5 1297.92 / 1297.92 Output Total 0 / 0 Balance 1000 / 1000 2930.5 / 2930.5 1297.92 / 1297.92 Medical Nutrition Assessment Dietitian: Malnutrition Criteria Met Start: 06/03/22 11:51 Freq: Status: Active Protocol: Document 06/03/22 11:51 GIA (Rec: 06/03/22 11:51 SLA [id number]) Nutrition Malnutrition Evidence of Malnutrition Exists Yes Malnutrition (moderate): Acute Illness/Injury Evidenced By Suboptimal Energy Intake ( Moderate),Weight Loss (Severe) Clinical Problem Acute Disease or Injury Related Malnutrition Etiology related to acute illness and increased stress in college and pt with suboptimal energy intake and frequently skipping regular meals. Signs/Symptoms as evidenced by <50% po intake x > 1 mo and 15.6% wt loss x 2 months. Status Active Problem Recommendation Dietitian Recommendations/Changes As medically able, rec TAYA to Transitional with goal of Regular diet Will provide 8 oz ensure clear tid w/ meals for increased nutrition if consumed Lab / Micro Data Result Diagrams: 06/04/22 05:55 06/04/22 05:55 Labs: Laboratory Results - last 24 hr 06/02/22 20:48: Diff Path Review Reviewed 06/04/22 05:55: WBC 17.2 H, RBC 4.54 L, Hgb 13.2, Hct 40.3, MCV 88.8, MCH 29.1, MCHC 32.8, RDW Std Deviation 44.7 H, RDW Coeff of Willy 13.8, Plt Count 345, MPV 10.9, Immature Gran % (Auto) 0.500, Neut % (Auto) 73.2 H, Lymph % (Auto) 13.1 L, [place] % (Auto) 12.9 H, Eos % (Auto) 0.1, Baso % (Auto) 0.2, Absolute Neuts (auto) 12.6 H, Absolute Lymphs (auto) 2.26, Nucleated RBC % 0 06/04/22 05:55: Sodium 138, Potassium 3.3 L, Chloride 105, Carbon Dioxide 22.0, Anion Gap 11, BUN 2 L, Creatinine 0.58 L, Estim Creat Clear Calc 211.52, Est GFR (MDRD) Af Amer 231, Est GFR (MDRD) Non-Af 191, BUN/Creatinine Ratio 3.5 L, Glucose 89, Calcium 8.8 Micro: Microbiology 06/03/22 01:50 Stool Enteric Bacteriology - Final 06/03/22 01:50 Stool C. difficile GDH Antigen & Toxins - Final 06/03/22 01:50 Stool C. difficile DNA Amplification - Final Physical Exam Narrative Physical exam General: Alert, Oriented x3, Cooperative HEENT: Atraumatic, PERRLA, EOMI, Normocephalic Oral: Oral mucosa moist. No Gingival or Mucosal Lesions/ Ulcerations Neck: Supple, No JVD, Negative Carotid Bruits Lungs: Air entry diminished in bilateral lung bases. No crepitation/rhonchi Cardiovascular: Regular rate, Regular Rhythm, Normal S1, Normal S2, No murmurs Abdomen: Bowel Sounds Present, Soft, tenderness present over right lower quadrant. Mild guarding but no rigidity. : No renal angle tenderness. No suprapubic tenderness. Extremities: No edema, Capillary Refill Less than 3 Seconds Skin: No rashes, No breakdown Musculoskeletal: No Tenderness over his small bony joints especially on bilateral wrist. No synovitis. ROM full. Muscle strength 5/5 at major joints. Neurological: Cranial nerves II-XII grossly intact, DTR 2+/4 and Symmetrical, Neuro grossly intact Psych/Mental Status: Normal Affect, Appropriate. Assessment & Plan Assessment/Plan (1) Right lower quadrant abdominal pain: (2) Leukocytosis: (3) Rheumatoid arthritis: PLAN: Plan This 21-year-old gentleman was admitted with right lower quadrant abdominal pain associated with nausea, vomiting, nonbloody diarrhea low-grade fever, T-max 100 Fahrenheit. RLQ for 2 weeks then progressed worse over 24 to 48 hours prior to admission. CT abdomen and pelvis with p.o. and IV contrast was done in ED and individually reviewed. It shows diffuse inflammation of the cecum which reported as segmental colonic inflammation and prominent mesenteric lymph nodes. Appendicitis less likely. Patient is admitted in surgical service. 1 Acute RLQ abdominal pain due to acute C. difficile colitis: Patient is being admitted MedSur floor. Patient has significant leukocytosis. Stool for C. difficile antigen AMB positive. Negative C. difficile toxin, positive PCR. Enteric bacteriology panel negative. Patient did not had any exposure of his knowledge but he lives in dormitory. Discussed with surgeon Dr. Cavanaugh and agreed on vancomycin 125 mg p.o. every 6 hourly for 10 days. I also discussed with Dr. Castelan as patient on immunosuppressant methotrexate and abatacept and he said to talk with biscuit machine operator regarding immunosuppressant/biologic medications 06/04: Patient is gradually improving but he still has intermittent colicky abdominal pain and diarrhea. Continue p.o. vancomycin 2. Rheumatoid arthritis on immunosuppressant medication: Patient on methotrexate, folic acid and abatacept (Orencia once a week injectable medicine) as home medication. Patient has history of bilateral wrist synovitis and arthritis which is well controlled with these medications. Abatacept and methotrexate is immunosuppressant and will hold it for now. Patient follows biscuit machine operator in [place]. We will try to contact him. Patient also has history of rheumatoid arthritis diagnosed at age of 9-10. 06/04: Patient biscuit machine operator is Dr. Mina Johnson in [place], [place]. Patient is in the college year but his home is in [place] where he follows biscuit machine operator every 3 months. Currently patient does not have his phone number or contact number but he said he will get from his relative and give it to me. 3. DVT low risk Charges/Coding Visit Charges Inpatient E&M: 04386 Subs Hosp L2
[2022-06-04] MEDS: Potassium Chloride Oral Tablet 20 MEQ 40 MEQ PO ×2 (08:48→12:10)
[2022-06-04 09:11] LABS: Magnesium 2.2 mg/dL (1.6-2.6); Phosphorus 2.8 mg/dL (2.5-4.9)
[2022-06-04] MEDS: Folic Acid 1 MG Tablet PO (10:25)
[2022-06-04] MEDS: Ensure Clear 120 ML Liquid PO ×3 (10:25→17:41)
[2022-06-04 10:43] LABS: Differential Comment SCANNED
--- NOTE | 2022-06-04 11:57 | PCM.PN.SRG ---
Subjective Subjective patient states that he has improved, however still with abdominal pain Objective Data Objective Data Vital Signs: Vital Signs Temp Pulse Resp BP Pulse Ox O2 Del Method 98.4 F 100 18 132/64 H 99 Room Air 06/04/22 08:51 06/04/22 08:51 06/04/22 08:51 06/04/22 08:51 06/04/22 08:51 06/04/22 08:51 Oxygen Delivery Method Room Air Weight: 86.2 kg Body Mass Index (BMI) 27.2 Intake & Output: Intake and Output for Last 24 Hours 06/02/22 06/03/22 06/04/22 23:59 23:59 23:59 Intake Total 1000 / 1000 2930.5 / 2930.5 2297.92 / 2297.92 Output Total 0 / 0 Balance 1000 / 1000 2930.5 / 2930.5 2297.92 / 2297.92 Medical Nutrition Assessment Dietitian: Malnutrition Criteria Met Start: 06/03/22 11:51 Freq: Status: Active Protocol: Document 06/03/22 11:51 GIA (Rec: 06/03/22 11:51 SLA [id number]) Nutrition Malnutrition Evidence of Malnutrition Exists Yes Malnutrition (moderate): Acute Illness/Injury Evidenced By Suboptimal Energy Intake ( Moderate),Weight Loss (Severe) Clinical Problem Acute Disease or Injury Related Malnutrition Etiology related to acute illness and increased stress in college and pt with suboptimal energy intake and frequently skipping regular meals. Signs/Symptoms as evidenced by <50% po intake x > 1 mo and 15.6% wt loss x 2 months. Status Active Problem Recommendation Dietitian Recommendations/Changes As medically able, rec TAYA to Transitional with goal of Regular diet Will provide 8 oz ensure clear tid w/ meals for increased nutrition if consumed Lab / Micro Data Attestation: I reviewed the patient's lab results. Result Diagrams: 06/04/22 05:55 06/04/22 05:55 Labs: Laboratory Results - last 24 hr 06/02/22 20:48: Diff Path Review Reviewed 06/04/22 05:55: WBC 17.2 H, RBC 4.54 L, Hgb 13.2, Hct 40.3, MCV 88.8, MCH 29.1, MCHC 32.8, RDW Std Deviation 44.7 H, RDW Coeff of Willy 13.8, Plt Count 345, MPV 10.9, Immature Gran % (Auto) 0.500, Neut % (Auto) 73.2 H, Lymph % (Auto) 13.1 L, [place] % (Auto) 12.9 H, Eos % (Auto) 0.1, Baso % (Auto) 0.2, Absolute Neuts (auto) 12.6 H, Absolute Lymphs (auto) 2.26, Nucleated RBC % 0, Differential Comment SCANNED, Diff Path Review November06/04/22 05:55: Sodium 138, Potassium 3.3 L, Chloride 105, Carbon Dioxide 22.0, Anion Gap 11, BUN 2 L, Creatinine 0.58 L, Estim Creat Clear Calc 211.52, Est GFR (MDRD) Af Amer 231, Est GFR (MDRD) Non-Af 191, BUN/Creatinine Ratio 3.5 L, Glucose 89, Calcium 8.8 06/04/22 05:55: Phosphorus 2.8, Magnesium 2.2 Micro: Microbiology 06/03/22 01:50 Stool Enteric Bacteriology - Final 06/03/22 01:50 Stool C. difficile GDH Antigen & Toxins - Final 06/03/22 01:50 Stool C. difficile DNA Amplification - Final Physical Exam Const alert and oriented x3 General Appearance: cooperative HEENT normocephalic Neck supple Resp normal respiratory effort Effort and Inspection: able to speak in complete sentences GI GI Narrative: abdomen is soft but with rebound tenderness in RLQ but no peritoneal signs Assessment & Plan Assessment/Plan (1) C. difficile colitis: PLAN: see below (2) Right lower quadrant abdominal pain: PLAN: see below PLAN: Plan continue present therapy
--- NOTE | 2022-06-04 15:42 | CASEMGMT ---
Addendum entered by Yfn Lobo 06/04/22 16:47: Dr Foster e-scribed Vanco capsules x 4 capsules to [facility], so pt can order picker/assembler tomorrow (if ready for discharge) and can take until Vanco Liquid is available @ [facility] on Monday. Call placed to [facility] for [place] check on the Vanco capsules. Per pharmacy, vanco capsules also do not require a prior auth and cost for 4 capsules is $7.24. SRINIVASA QUIÑONES to room. Pt made aware of above all of the above and aware the liquid, the he will order picker/assembler on Monday is $60. He voices understanding and states it is affordable. He denies having other discharge planning needs. Reed LUIS RN, CM Original Note: SRINIVASA QUIÑONES NOTE: Per Dr Foster, pt may be medically ready for discharge tomorrow. Vanc liquid has been e-scribed to [facility]. RN ISHMAEL placed call to [facility] and spoke w/Lois. Per Lois, vanco went through with insurance and no prior-auth needed. Co-pay is $60. She states they do not have any Vanco liquid available, they would need to order it, and the earliest they would have it is Monday. Dr Foster notified and SRINIVASA QUIÑONES inquired if pt would be able to discharge home on Vanco capsules vs liquid. Dr Foster states he prefers Vanco liquid and asked SRINIVASA QUIÑONES to try and find another pharmacy that has it available. SRINIVASA QUIÑONES placed calls to the following pharmacies: [facility], [facility], [facility], and [facility]. None of them have Vanco liquid in stock. Dr Foster notified. Reed LUIS RN, CM
[2022-06-05] MEDS: Vancomycin 125 MG/5 ML Susp PO.SYRINGE PO ×3 (00:36→11:18)
[2022-06-05 03:49] VITALS: BP 111/63; PULSE 100; RESP 18; TEMP 36.8; O2SAT 100
[2022-06-05 03:52] VITALS: BP 111/63; PULSE 100; RESP 18; TEMP 36.8; O2SAT 100
[2022-06-05] MEDS: 0.9% Normal Saline 1,000 ML 125 ML IV ×3 (03:54→20:37)
[2022-06-05 07:22] LABS: Absolute Lymphocyte Count 1.67 X10^3/uL (0.83-4.51); Absolute Neutrophil Count 9.6 X10^3/uL (2.0-7.7); Basophil# 0.03 X10^3/uL; Basophil% 0.2 % (0-1); Eosinophil# 0.08 X10^3/uL; Eosinophils% 0.6 % (0-5); Hematocrit 38.9 % (40-54); Hemoglobin 13.2 g/dL (13.0-16.5); Lymphocyte # 1.67 X10^3/ul (0.83-4.51); Lymphocyte % 12.6 % (19-41); Mean Corp Hgb Conc 33.9 g/dL (32-36); Mean Corpuscular Hgb 29.5 pg (27.0-32.0); Mean Corpuscular Volume 86.8 fL (80-94); Mean Platelet Vol. 10.8 fl (6.2-12.0); Monocyte# 1.86 X10^3/uL; NRBC Flagged by Analyzer 0 % (0-5); Neutrophil # 9.56 X10^3/uL (2.7-7.7); Neutrophil % 72.2 % (47-70); POSITIVE DIFFERENTIAL YES; Platelet Count 379 K/mm3 (150-450); RBC Distribution Width CV 13.7 % (11.6-14.6); RBC Distribution Width SD 43.5 fl (35.1-43.9); Red Blood Count 4.48 M/mm3 (4.6-6.2); White Blood Count 13.3 K/mm3 (4.4-11.0)
[2022-06-05 07:30] LABS: Differential Indicated SCAN CRITERIA MET
[2022-06-05 07:37] LABS: Anion Gap 10 (5-15); BUN 2 mg/dL (7-18); BUN/Creat Ratio 3.8 RATIO (10-20); Calcium,Total 8.7 mg/dL (8.5-10.1); Chloride 104 mmol/L (98-107); Creatinine, Serum 0.53 mg/dL (0.70-1.30); EST Glomerular Filtration Rate 212 mL/min (>60); Est Glom Filt Rate - Afr Amer 256 mL/min (>60); Estimated Creatinine Clearance 231.47 ml/min; Glucose 91 mg/dL (74-106); Potassium 3.7 mmol/L (3.5-5.1); Sodium Level 140 mmol/L (136-145)
[2022-06-05] MEDS: Folic Acid 1 MG Tablet PO (08:55)
[2022-06-05] MEDS: Ensure Clear 120 ML Liquid PO ×2 (08:55→11:18)
--- NOTE | 2022-06-05 09:20 | PN.SURG_ITS ---
Subjective Subjective Patient feels a little better, but still with abdominal pain Objective Data Objective Data Vital Signs: Vital Signs Temp Pulse Resp BP Pulse Ox O2 Del Method 98.3 F 100 18 111/63 100 Room Air 06/05/22 03:52 06/05/22 03:52 06/05/22 03:52 06/05/22 03:52 06/05/22 03:52 06/05/22 03:52 Oxygen Delivery Method Room Air Weight: 86.2 kg Body Mass Index (BMI) 27.2 Intake & Output: Intake and Output for Last 24 Hours 06/03/22 06/04/22 06/05/22 23:59 23:59 22:59 Intake Total 2930.5 / 2930.5 3817.92 / 3817.92 1700 / 1700 Output Total 0 / 0 Balance 2930.5 / 2930.5 3817.92 / 3817.92 1700 / 1700 Medical Nutrition Assessment Dietitian: Malnutrition Criteria Met Start: 06/03/22 11:51 Freq: Status: Active Protocol: Document 06/03/22 11:51 SLA (Rec: 06/03/22 11:51 SLA [id number]) Nutrition Malnutrition Evidence of Malnutrition Exists Yes Malnutrition (moderate): Acute Illness/Injury Evidenced By Suboptimal Energy Intake ( Moderate),Weight Loss (Severe) Clinical Problem Acute Disease or Injury Related Malnutrition Etiology related to acute illness and increased stress in college and pt with suboptimal energy intake and frequently skipping regular meals. Signs/Symptoms as evidenced by <50% po intake x > 1 mo and 15.6% wt loss x 2 months. Status Active Problem Recommendation Dietitian Recommendations/Changes As medically able, rec TAYA to Transitional with goal of Regular diet Will provide 8 oz ensure clear tid w/ meals for increased nutrition if consumed Lab / Micro Data Attestation: I reviewed the patient's lab results. Result Diagrams: 06/05/22 06:00 06/05/22 06:00 Labs: Laboratory Results - last 24 hr 06/04/22 05:55: Differential Comment SCANNED, Diff Path Review November06/05/22 06:00: WBC 13.3 H, RBC 4.48 L, Hgb 13.2, Hct 38.9 L, MCV 86.8, MCH 29.5, MCHC 33.9, RDW Std Deviation 43.5, RDW Coeff of Willy 13.7, Plt Count 379, MPV 10.8, Immature Gran % (Auto) 0.400, Neut % (Auto) 72.2 H, Lymph % (Auto) 12.6 L, Meeker % (Auto) 14.0 H, Eos % (Auto) 0.6, Baso % (Auto) 0.2, Absolute Neuts (auto) 9.6 H, Absolute Lymphs (auto) 1.67, Nucleated RBC % 0 06/05/22 06:00: Sodium 140, Potassium 3.7, Chloride 104, Carbon Dioxide 26.0, Anion Gap 10, BUN 2 L, Creatinine 0.53 L, Estim Creat Clear Calc 231.47, Est GFR (MDRD) Af Amer 256, Est GFR (MDRD) Non-Af 212, BUN/Creatinine Ratio 3.8 L, Glucose 91, Calcium 8.7 Micro: Microbiology 06/03/22 01:50 Stool Enteric Bacteriology - Final 06/03/22 01:50 Stool C. difficile GDH Antigen & Toxins - Final 06/03/22 01:50 Stool C. difficile DNA Amplification - Final Physical Exam Const oriented x3 Resp normal respiratory effort Cardio regular rate GI GI Narrative: abdomen is soft but still with rebound tenderness of RLQ - no peritoneal signs Assessment & Plan Assessment/Plan (1) C. difficile colitis: PLAN: Continue present therapy, Continue IV antibiotics PLAN: Plan see above
[2022-06-05 09:53] LABS: Differential Comment SCANNED
[2022-06-05 10:00] VITALS: BP 137/78; PULSE 97; RESP 18; TEMP 36.4; O2SAT 100
--- NOTE | 2022-06-05 11:40 | PCM.PN.HOSP ---
Subjective Subjective Follow-up for right lower quadrant abdominal pain due to C. difficile colitis. Objective Data Objective Data Vital Signs: Vital Signs Temp Pulse Resp BP Pulse Ox O2 Del Method 98.3 F 100 18 111/63 100 Room Air 06/05/22 03:52 06/05/22 03:52 06/05/22 03:52 06/05/22 03:52 06/05/22 03:52 06/05/22 03:52 Oxygen Delivery Method Room Air Weight: 190 lb 0.615 oz Body Mass Index (BMI) 27.2 Intake & Output: Intake and Output for Last 24 Hours 06/03/22 06/04/22 06/05/22 23:59 23:59 22:59 Intake Total 2930.5 / 2930.5 3817.92 / 3817.92 2625 / 2625 Output Total 0 / 0 Balance 2930.5 / 2930.5 3817.92 / 3817.92 2625 / 2625 Medical Nutrition Assessment Dietitian: Malnutrition Criteria Met Start: 06/03/22 11:51 Freq: Status: Active Protocol: Document 06/03/22 11:51 SLA (Rec: 06/03/22 11:51 SLA [id number]) Nutrition Malnutrition Evidence of Malnutrition Exists Yes Malnutrition (moderate): Acute Illness/Injury Evidenced By Suboptimal Energy Intake ( Moderate),Weight Loss (Severe) Clinical Problem Acute Disease or Injury Related Malnutrition Etiology related to acute illness and increased stress in college and pt with suboptimal energy intake and frequently skipping regular meals. Signs/Symptoms as evidenced by <50% po intake x > 1 mo and 15.6% wt loss x 2 months. Status Active Problem Recommendation Dietitian Recommendations/Changes As medically able, rec TAYA to Transitional with goal of Regular diet Will provide 8 oz ensure clear tid w/ meals for increased nutrition if consumed Lab / Micro Data Result Diagrams: 06/05/22 06:00 06/05/22 06:00 Labs: Laboratory Results - last 24 hr 06/05/22 06:00: WBC 13.3 H, RBC 4.48 L, Hgb 13.2, Hct 38.9 L, MCV 86.8, MCH 29.5, MCHC 33.9, RDW Std Deviation 43.5, RDW Coeff of Willy 13.7, Plt Count 379, MPV 10.8, Immature Gran % (Auto) 0.400, Neut % (Auto) 72.2 H, Lymph % (Auto) 12.6 L, Sebastian % (Auto) 14.0 H, Eos % (Auto) 0.6, Baso % (Auto) 0.2, Absolute Neuts (auto) 9.6 H, Absolute Lymphs (auto) 1.67, Nucleated RBC % 0, Differential Comment SCANNED, Diff Path Review November foll 06/05/22 06:00: Sodium 140, Potassium 3.7, Chloride 104, Carbon Dioxide 26.0, Anion Gap 10, BUN 2 L, Creatinine 0.53 L, Estim Creat Clear Calc 231.47, Est GFR (MDRD) Af Amer 256, Est GFR (MDRD) Non-Af 212, BUN/Creatinine Ratio 3.8 L, Glucose 91, Calcium 8.7 Micro: Microbiology 06/03/22 01:50 Stool Enteric Bacteriology - Final 06/03/22 01:50 Stool C. difficile GDH Antigen & Toxins - Final 06/03/22 01:50 Stool C. difficile DNA Amplification - Final Physical Exam Narrative Seen and examined Patient is still had 4 loose watery diarrhea in last 24 hours. Right lower quadrant abdominal pain has improved but diarrhea frequency same. Before admission it was also 2-4 watery diarrhea. Patient is immunosuppressed with history of RA on methotrexate and abatacept General: Alert, Oriented x3, Cooperative HEENT: Atraumatic, PERRLA, EOMI, Normocephalic Oral: Oral mucosa moist.? No Gingival or Mucosal Lesions/ Ulcerations Neck: Supple, No JVD, Negative Carotid Bruits Lungs:? Air entry diminished in bilateral lung bases.? No crepitation/rhonchi Cardiovascular: Regular rate, Regular Rhythm, Normal S1, Normal S2, No murmurs Abdomen: Bowel Sounds Present, Soft, mild tenderness present over right lower quadrant.? No guarding or rigidity : No renal angle tenderness.? No suprapubic tenderness. Extremities: No edema, Capillary Refill Less than 3 Seconds Skin: No rashes, No breakdown Musculoskeletal: No Tenderness over his small bony joints especially on bilateral wrist.? No synovitis.? ROM full.? Muscle strength 5/5 at major joints. Neurological: Cranial nerves II-XII grossly intact, DTR? 2+/4 and Symmetrical, Neuro grossly intact Psych/Mental Status: Normal Affect, Appropriate. ? Assessment & Plan Assessment/Plan (1) Right lower quadrant abdominal pain: (2) Leukocytosis: (3) Rheumatoid arthritis: PLAN: Plan This 21-year-old gentleman was admitted with right lower quadrant abdominal pain associated with nausea, vomiting, nonbloody diarrhea low-grade fever, T-max 100 Fahrenheit. RLQ for 2 weeks then progressed worse over 24 to 48 hours prior to admission. CT abdomen and pelvis with p.o. and IV contrast was done in ED and individually reviewed. It shows diffuse inflammation of the cecum which reported as segmental colonic inflammation and prominent mesenteric lymph nodes. Appendicitis less likely. Patient is admitted in surgical service. 1 Acute RLQ abdominal pain due to acute C. difficile colitis: Patient is being admitted MedSurg floor. Patient has significant leukocytosis. Stool for C. difficile antigen AMB positive. Negative C. difficile toxin, positive PCR. Enteric bacteriology panel negative. Patient did not had any exposure of his knowledge but he lives in dormitory. Discussed with surgeon Dr. Cavanaugh and agreed on vancomycin 125 mg p.o. every 6 hourly for 10 days. I also discussed with Dr. Castelan as patient on immunosuppressant methotrexate and abatacept and he said to talk with surgical instrument repair specialist regarding immunosuppressant/biologic medications 06/04: Patient is gradually improving but he still has intermittent colicky abdominal pain and diarrhea. Continue p.o. vancomycin 06/05: As patient did not had significant improvement over last 3 days regarding diarrhea but abdominal pain is mildly improved therefore vancomycin dose increased to 500 mg every 6 hourly. No fever. Leukocytosis improved. 2. Rheumatoid arthritis on immunosuppressant medication: Patient on methotrexate, folic acid and abatacept (Orencia once a week injectable medicine) as home medication. Patient has history of bilateral wrist synovitis and arthritis which is well controlled with these medications. Abatacept and methotrexate is immunosuppressant and will hold it for now. Patient follows surgical instrument repair specialist in [place]. We will try to contact him. Patient also has history of rheumatoid arthritis diagnosed at age of 9-10. 06/04: Patient surgical instrument repair specialist is Dr. Mina Johnson in [place], [place]. Patient is in the college year but his home is in [place] where he follows surgical instrument repair specialist every 3 months. Currently patient does not have his phone number or contact number but he said he will get from his relative and give it to me. 06/05: Patient does not have the phone number for power regulator but will try to find it. 3. DVT low risk Charges/Coding Visit Charges Inpatient E&M: 27001 Subs Hosp L2
[2022-06-05] MEDS: Vancomycin 125 MG/5 ML Susp PO.SYRINGE 375 MG PO (12:18)
[2022-06-05 16:00] VITALS: BP 119/63; PULSE 79; RESP 18; TEMP 36.9; O2SAT 96
[2022-06-05] MEDS: Vancomycin 125 MG/5 ML Susp PO.SYRINGE 250 MG PO ×2 (18:32→23:13)
[2022-06-05 21:26] VITALS: BP 142/85; PULSE 103; RESP 18; TEMP 36.9; O2SAT 100
[2022-06-05 23:15] VITALS: BP 131/71; PULSE 83; RESP 18; TEMP 36.8; O2SAT 99
[2022-06-06 04:01] VITALS: BP 135/79; PULSE 84; RESP 16; TEMP 36.6; O2SAT 100
[2022-06-06] MEDS: 0.9% Normal Saline 1,000 ML 125 ML IV (04:09)
[2022-06-06 06:04] LABS: Absolute Neutrophil Count 8.7 X10^3/uL (2.0-7.7); Basophil# 0.03 X10^3/uL; Basophil% 0.2 % (0-1); Eosinophil# 0.14 X10^3/uL; Eosinophils% 1.1 % (0-5); Hematocrit 38.1 % (40-54); Hemoglobin 12.5 g/dL (13.0-16.5); Lymphocyte % 13.1 % (19-41); Mean Corp Hgb Conc 32.8 g/dL (32-36); Mean Corpuscular Hgb 28.7 pg (27.0-32.0); Mean Corpuscular Volume 87.6 fL (80-94); Mean Platelet Vol. 10.8 fl (6.2-12.0); Monocyte# 1.64 X10^3/uL; Monocyte% 13.4 % (0-10); NRBC Flagged by Analyzer 0 % (0-5); Neutrophil # 8.73 X10^3/uL (2.7-7.7); Neutrophil % 71.7 % (47-70); POSITIVE DIFFERENTIAL YES; Platelet Count 409 K/mm3 (150-450); RBC Distribution Width CV 13.7 % (11.6-14.6); RBC Distribution Width SD 43.9 fl (35.1-43.9); Red Blood Count 4.35 M/mm3 (4.6-6.2); White Blood Count 12.2 K/mm3 (4.4-11.0)
[2022-06-06] MEDS: Vancomycin 125 MG/5 ML Susp PO.SYRINGE 250 MG PO ×2 (06:17→11:32)
[2022-06-06 06:26] LABS: Anion Gap 9 (5-15); BUN 2 mg/dL (7-18); BUN/Creat Ratio 4.2 RATIO (10-20); Calcium,Total 8.5 mg/dL (8.5-10.1); Chloride 106 mmol/L (98-107); Creatinine, Serum 0.47 mg/dL (0.70-1.30); EST Glomerular Filtration Rate 241 mL/min (>60); Est Glom Filt Rate - Afr Amer 292 mL/min (>60); Estimated Creatinine Clearance 261.02 ml/min; Glucose 89 mg/dL (74-106); Potassium 3.3 mmol/L (3.5-5.1); Sodium Level 142 mmol/L (136-145)
[2022-06-06 06:37] LABS: Differential Indicated SCAN CRITERIA MET
--- NOTE | 2022-06-06 08:05 | PCM.PN.SRG ---
Subjective Subjective Patient seen and examined during AM rounds. He reports that he is feeling better after this weekend. He states that he still has some abdominal discomfort but this is improved. When referencing a pile of empty Jell-O cups, he states that his appetite is returned. He estimates that in the past 24 hours he has had 3 loose bowel movements?but adds that the consistency is slowly thickening. Objective Data Objective Data Vital Signs: Vital Signs Temp Pulse Resp BP Pulse Ox O2 Del Method 97.9 F 84 16 135/79 H 100 Room Air 06/06/22 04:01 06/06/22 04:01 06/06/22 04:01 06/06/22 04:01 06/06/22 04:01 06/06/22 04:01 Oxygen Delivery Method Room Air Weight: 190 lb 0.615 oz Body Mass Index (BMI) 27.2 Intake & Output: Intake and Output for Last 24 Hours 06/05/22 06/05/22 06/06/22 00:59 23:59 23:59 Intake Total 1241.67 / 1241.67 Balance 1241.67 / 1241.67 Medical Nutrition Assessment Dietitian: Malnutrition Criteria Met Start: 06/03/22 11:51 Freq: Status: Active Protocol: Document 06/03/22 11:51 GIA (Rec: 06/03/22 11:51 SLA [id number]) Nutrition Malnutrition Evidence of Malnutrition Exists Yes Malnutrition (moderate): Acute Illness/Injury Evidenced By Suboptimal Energy Intake ( Moderate),Weight Loss (Severe) Clinical Problem Acute Disease or Injury Related Malnutrition Etiology related to acute illness and increased stress in college and pt with suboptimal energy intake and frequently skipping regular meals. Signs/Symptoms as evidenced by <50% po intake x > 1 mo and 15.6% wt loss x 2 months. Status Active Problem Recommendation Dietitian Recommendations/Changes As medically able, rec TAYA to Transitional with goal of Regular diet Will provide 8 oz ensure clear tid w/ meals for increased nutrition if consumed Lab / Micro Data Result Diagrams: 06/06/22 04:39 06/06/22 04:39 Labs: Laboratory Results - last 24 hr 06/05/22 06:00: Differential Comment SCANNED, Diff Path Review November06/06/22 04:39: WBC 12.2 H, RBC 4.35 L, Hgb 12.5 L, Hct 38.1 L, MCV 87.6, MCH 28.7, MCHC 32.8, RDW Std Deviation 43.9, RDW Coeff of Willy 13.7, Plt Count 409, MPV 10.8, Immature Gran % (Auto) 0.500, Neut % (Auto) 71.7 H, Lymph % (Auto) 13.1 L, Morris % (Auto) 13.4 H, Eos % (Auto) 1.1, Baso % (Auto) 0.2, Absolute Neuts (auto) 8.7 H, Absolute Lymphs (auto) 1.60, Nucleated RBC % 0, Diff Path Review November06/06/22 04:39: Sodium 142, Potassium 3.3 L, Chloride 106, Carbon Dioxide 27.0, Anion Gap 9, BUN 2 L, Creatinine 0.47 L, Estim Creat Clear Calc 261.02, Est GFR (MDRD) Af Amer 292, Est GFR (MDRD) Non-Af 241, BUN/Creatinine Ratio 4.2 L, Glucose 89, Calcium 8.5 Micro: Microbiology 06/03/22 01:50 Stool Enteric Bacteriology - Final 06/03/22 01:50 Stool C. difficile GDH Antigen & Toxins - Final 06/03/22 01:50 Stool C. difficile DNA Amplification - Final Physical Exam Const oriented x3 and no apparent distress Resp normal respiratory effort GI GI Narrative: Nondistended, soft, minimally tender to palpation over the right lower quadrant. Assessment & Plan Assessment/Plan (1) C. difficile colitis: PLAN: Patient with severe C. difficile colitis?as based on white blood cell count greater than 15,000 and radiographic appearance of the cecum. Patient has no history of recent antibiotic use or no proximity to healthcare settings so this should be a community-acquired infection. This is probably related to patient's relatively immunocompromise state and on both Orencia and methotrexate for rheumatoid arthritis. After conferencing with infectious disease and hospitalist service, Mr. Crowder receiving vancomycin 125 mg p.o. every 6 hours x10 days. Patient with significantly improved abdominal discomfort. Improved appetite. Decreased white count. We will plan to advance patient's diet today and monitor for frequency of bowel movements. Patient currently states this is averaging 3 per 24 hours. At this frequency I do believe he should be able to remain hydrated without intravenous fluid infusion. He is hypokalemic today as result of these bowel movements and I am replacing this orally. Will assess for possible discharge either later today or tomorrow. (2) Right lower quadrant abdominal pain: PLAN: Given the above finding of C. difficile colitis, diagnosis of appendicitis is unlikely. Continue treatment for C. difficile colitis (3) Rheumatoid arthritis: PLAN: Patient on concurrent Orencia and methotrexate therapy. I have concerns about continuing these medications amidst a severe C. difficile infection. Infectious disease recommended conferencing with patient's primary phone triage specialist about the severity of patient's rheumatoid arthritis before making any decision on holding these DMARD medications. Hospitalist service will plan to initiate this communication with patient's phone triage specialist who is located in [place], [place] with [facility]. Charges/Coding Visit Charges Inpatient E&M: 04043 Subs Hosp L2
[2022-06-06 10:00] VITALS: BP 141/87; PULSE 86; RESP 18; TEMP 36.6; O2SAT 100
[2022-06-06] MEDS: Ensure Clear 120 ML Liquid PO ×2 (10:09→11:31)
[2022-06-06] MEDS: Folic Acid 1 MG Tablet PO (10:09)
[2022-06-06] MEDS: Potassium Chloride Oral Tablet 20 MEQ 60 MEQ PO (10:12)
[2022-06-06 10:13] VITALS: BP 141/87; PULSE 86; RESP 18; TEMP 36.6; O2SAT 100
[2022-06-06] MEDS: 0.9% Normal Saline 1,000 ML 25 ML IV (12:15)
[2022-06-06 12:36] LABS: Pathologist Review Reviewed
[2022-06-06 12:39] LABS: Pathologist Review Reviewed
[2022-06-06 12:58] LABS: Pathologist Review Reviewed
--- NOTE | 2022-06-06 15:37 | DCINST_ITS ---
Discharge Instructions Diet Discharge Diet: No restrictions Activity Discharge Activity: Return to Normal Activity Weight Bearing Status: Full weight bearing Follow Up Care Test Results: Test results from this visit will be discussed in further detail at your follow- up appointment, if applicable. Discharge Plan Admission Admit Date/Time: 06/03/22 01:21 Primary Reason for Your Visit: C.diff colitis Attending Provider: Dionisio Cavanaugh Primary Care Provider: Care Physician,No Primary Consulting Providers: Guillermo Foster ; Jason Luna Instructions Additional Instructions / Restrictions: Wipe around your home toilet with a mixture of one part bleach to 9 parts water to sterilize area Discharge Orders/Prescriptions Prescriptions: New vancomycin 50 mg/mL recon soln 125 mg PO Q6H 10 Days Qty: 100 0RF vancomycin 125 mg capsule 125 mg PO Q6H 1 Days Qty: 4 0RF vancomycin 125 mg capsule 125 mg PO .QID Qty: 30 0RF Rx Instructions: start today-two doses today Continued folic acid 1 mg tablet 1 mg PO DAILY Label Comments: TAKE ONE TABLET BY MOUTH ONCE A DAY Held methotrexate sodium 2.5 mg tablet 15 mg PO TH Hold Instructions: Resume on 06/14/22. Orencia 125 mg/mL syringe 125 mg SUBCUT TU Hold Instructions: Resume on 06/14/22. Referrals / Follow Up: Dionisio Cavanaugh MD [Med Staff - Active Staff] - See Referral Note (in two weeks- call for appointment) Care Physician,No Primary [Primary Care Provider] - Disposition Disposition (needs filled in before D/C Order can be placed): Home, Self Care
--- NOTE | 2022-06-06 15:52 | DS.PCM_ITS ---
Providers Date of Admission: 06/03/22 Date of Discharge: 06/06/22 Primary Care Physician: No Primary Care Phys Reason For Visit: CECAL INFLAMMATION Diagnosis Discharge Diagnosis (1) C. difficile colitis: Status: Acute Code(s): A04.72 - Enterocolitis due to Clostridium difficile, not specified as recurrent (2) Right lower quadrant abdominal pain: Status: Acute Code(s): R10.31 - Right lower quadrant pain (3) Rheumatoid arthritis: Status: Acute Code(s): M06.9 - Rheumatoid arthritis, unspecified Medications at Discharge Home Medications abatacept 125 mg/mL subcutaneous syringe (Orencia) 125 mg subcut TU rheumatoid a rthritis 06/03/22 folic acid 1 mg tablet 1 mg PO DAILY supplement 06/03/22 methotrexate sodium 2.5 mg tablet 15 mg PO TH rheumatoid arthritis 06/03/22 vancomycin 125 mg capsule 125 mg PO Q6H 1 day #4 caps 06/04/22 vancomycin 50 mg/mL oral solution 125 mg (2.5 mL) PO Q6H 10 days #100 mL 06/04/22 vancomycin 125 mg capsule 125 mg PO .QID #30 caps 06/06/22 Medical Records Data Medical Nutrition Assessment Dietitian: Malnutrition Criteria Met Start: 06/03/22 11:51 Freq: Status: Active Protocol: Document 06/03/22 11:51 GIA (Rec: 06/03/22 11:51 GIA [id number]) Nutrition Malnutrition Evidence of Malnutrition Exists Yes Malnutrition (moderate): Acute Illness/Injury Evidenced By Suboptimal Energy Intake ( Moderate),Weight Loss (Severe) Clinical Problem Acute Disease or Injury Related Malnutrition Etiology related to acute illness and increased stress in college and pt with suboptimal energy intake and frequently skipping regular meals. Signs/Symptoms as evidenced by <50% po intake x > 1 mo and 15.6% wt loss x 2 months. Status Active Problem Recommendation Dietitian Recommendations/Changes As medically able, rec TAYA to Transitional with goal of Regular diet Will provide 8 oz ensure clear tid w/ meals for increased nutrition if consumed Weight / BMI Weight Weight: 86.2 kg Body Mass Index (BMI) 27.2 ABG / Lab / Microbiology Data Result Diagrams: 06/06/22 04:39 06/06/22 04:39 Laboratory: Laboratory Results - last 24 hr 06/04/22 05:55: Diff Path Review Reviewed 06/05/22 06:00: Diff Path Review Reviewed 06/06/22 04:39: WBC 12.2 H, RBC 4.35 L, Hgb 12.5 L, Hct 38.1 L, MCV 87.6, MCH 28.7, MCHC 32.8, RDW Std Deviation 43.9, RDW Coeff of Willy 13.7, Plt Count 409, MPV 10.8, Immature Gran % (Auto) 0.500, Neut % (Auto) 71.7 H, Lymph % (Auto) 13.1 L, Hyde % (Auto) 13.4 H, Eos % (Auto) 1.1, Baso % (Auto) 0.2, Absolute Neuts (auto) 8.7 H, Absolute Lymphs (auto) 1.60, Nucleated RBC % 0, Diff Path Review Reviewed 06/06/22 04:39: Sodium 142, Potassium 3.3 L, Chloride 106, Carbon Dioxide 27.0, Anion Gap 9, BUN 2 L, Creatinine 0.47 L, Estim Creat Clear Calc 261.02, Est GFR (MDRD) Af Amer 292, Est GFR (MDRD) Non-Af 241, BUN/Creatinine Ratio 4.2 L, Glucose 89, Calcium 8.5 Microbiology: Microbiology 06/03/22 01:50 Stool Enteric Bacteriology - Final 06/03/22 01:50 Stool C. difficile GDH Antigen & Toxins - Final 06/03/22 01:50 Stool C. difficile DNA Amplification - Final D/C Instructions Discharge Diet: No restrictions Weight Bearing Status: Full weight bearing Discharge Plan Admission Admit Date/Time: 06/03/22 01:21 Primary Reason for Your Visit: C.diff colitis Attending Provider: Dionisio Cavanaugh Primary Care Provider: Care Physician,No Primary Consulting Providers: Guillermo Foster ; Jason Luna Instructions Additional Instructions / Restrictions: Wipe around your home toilet with a mixture of one part bleach to 9 parts water to sterilize area Discharge Orders/Prescriptions Prescriptions: New vancomycin 50 mg/mL recon soln 125 mg PO Q6H 10 Days Qty: 100 0RF vancomycin 125 mg capsule 125 mg PO Q6H 1 Days Qty: 4 0RF vancomycin 125 mg capsule 125 mg PO .QID Qty: 30 0RF Rx Instructions: start today-two doses today Continued folic acid 1 mg tablet 1 mg PO DAILY Label Comments: TAKE ONE TABLET BY MOUTH ONCE A DAY Held methotrexate sodium 2.5 mg tablet 15 mg PO Hold Instructions: Resume on 06/14/22. Orencia 125 mg/mL syringe 125 mg SUBCUT TU Hold Instructions: Resume on 06/14/22. Referrals / Follow Up: Dionisio Cavanaugh MD [Med Staff - Active Staff] - See Referral Note (in two weeks- call for appointment) Care Physician,No Primary [Primary Care Provider] - Disposition Disposition (needs filled in before D/C Order can be placed): Home, Self Care
[2022-06-06 15:53] VITALS: BP 111/72; PULSE 83; RESP 18; TEMP 36.4; O2SAT 100
[2022-06-06 16:00] VITALS: BP 111/72; PULSE 83; RESP 18; TEMP 36.4; O2SAT 100
--- NOTE | 2022-06-06 17:17 | PN.HOSP_ITS ---
Subjective Subjective Patient was seen and examined today, his bowel movements have diminished, I discussed his care with general surgery, at this time I feel he is medically stable for discharge home on oral vancomycin. 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 I received advised to hold the patient's rheumatological medication (methotrexate and abatacept) until the patient was finished with his course of antibiotics for his C. difficile infection. Patient states he has minimal right-sided abdominal pain at this time. Objective Data Objective Data Vital Signs: Vital Signs Temp Pulse Resp BP Pulse Ox O2 Del Method 97.6 F L 83 18 111/72 100 Room Air 06/06/22 16:00 06/06/22 16:00 06/06/22 16:00 06/06/22 16:00 06/06/22 16:00 06/06/22 16:00 Oxygen Delivery Method Room Air Weight: 86.2 kg Body Mass Index (BMI) 27.2 Intake & Output: Intake and Output for Last 24 Hours 06/05/22 06/05/22 06/06/22 00:59 23:59 23:59 Intake Total 3091.67 / 3091.67 Balance 3091.67 / 3091.67 Medical Nutrition Assessment Dietitian: Malnutrition Criteria Met Start: 06/03/22 11:51 Freq: Status: Active Protocol: Document 06/03/22 11:51 GIA (Rec: 06/03/22 11:51 SLA [id number]) Nutrition Malnutrition Evidence of Malnutrition Exists Yes Malnutrition (moderate): Acute Illness/Injury Evidenced By Suboptimal Energy Intake ( Moderate),Weight Loss (Severe) Clinical Problem Acute Disease or Injury Related Malnutrition Etiology related to acute illness and increased stress in college and pt with suboptimal energy intake and frequently skipping regular meals. Signs/Symptoms as evidenced by <50% po intake x > 1 mo and 15.6% wt loss x 2 months. Status Active Problem Recommendation Dietitian Recommendations/Changes As medically able, rec TAYA to Transitional with goal of Regular diet Will provide 8 oz ensure clear tid w/ meals for increased nutrition if consumed Lab / Micro Data Result Diagrams: 06/06/22 04:39 06/06/22 04:39 Labs: Laboratory Results - last 24 hr 06/04/22 05:55: Diff Path Review Reviewed 06/05/22 06:00: Diff Path Review Reviewed 06/06/22 04:39: WBC 12.2 H, RBC 4.35 L, Hgb 12.5 L, Hct 38.1 L, MCV 87.6, MCH 28.7, MCHC 32.8, RDW Std Deviation 43.9, RDW Coeff of Willy 13.7, Plt Count 409, MPV 10.8, Immature Gran % (Auto) 0.500, Neut % (Auto) 71.7 H, Lymph % (Auto) 13.1 L, Osborne % (Auto) 13.4 H, Eos % (Auto) 1.1, Baso % (Auto) 0.2, Absolute Neuts (auto) 8.7 H, Absolute Lymphs (auto) 1.60, Nucleated RBC % 0, Diff Path Review Reviewed 06/06/22 04:39: Sodium 142, Potassium 3.3 L, Chloride 106, Carbon Dioxide 27.0, Anion Gap 9, BUN 2 L, Creatinine 0.47 L, Estim Creat Clear Calc 261.02, Est GFR (MDRD) Af Amer 292, Est GFR (MDRD) Non-Af 241, BUN/Creatinine Ratio 4.2 L, Glucose 89, Calcium 8.5 Micro: Microbiology 06/03/22 01:50 Stool Enteric Bacteriology - Final 06/03/22 01:50 Stool C. difficile GDH Antigen & Toxins - Final 06/03/22 01:50 Stool C. difficile DNA Amplification - Final Physical Exam Const alert, oriented x3, no apparent distress and healthy appearing General Appearance: cooperative, well kempt and well developed Orientation / Consciousness: awake, oriented to person, oriented to place and oriented to time HEENT normocephalic and moist oral mucous membranes Eyes PERRL, EOMs intact bilaterally and conjunctivae normal Neck supple, no JVD, thyroid normal and no carotid bruits General: trachea midline Resp normal respiratory effort, no retractions, no use of accessory muscles and clear to auscultation bilaterally Auscultation: Negative for rales, rhonchi or wheezes Cardio regular rate, regular rhythm, S1 normal heart sound, S2 normal heart sound, no murmurs, no rub and no gallops GI normal to inspection, nondistended, normoactive bowel sounds, soft to palpation, non-tender and non-distended Extremity no clubbing, cyanosis or edema Skin no rashes or lesions noted General Skin Exam: no breakdown Neuro oriented x3, CN's II-XII intact bilaterally, no focal motor deficits and no sensory deficits noted Sensorium / Orientation: awake and alert Speech: speech normal Psych affect normal Assessment & Plan Assessment/Plan (1) C. difficile colitis: PLAN: Plan 1. C. difficile colitis-etiology of his C. difficile is unknown at this time, this does not appear to be associated with his rheumatological medications in my opinion. I think at this time patient is stable for discharge home, I have given him a prescription for another 7 days of antibiotic coverage with oral vancomycin. He is to resume his rheumatological medications next week after he is finished his antibiotic. #2 rheumatoid arthritis-again patient may start his medications again next Monday. #3 acute moderate protein and caloric malnutrition related to acute illness and increased stress with suboptimal energy intake and frequently is skipping regular meals as evidenced by less than 50% p.o. intake x greater than 1 month and 15.6% weight loss x2 months-patient was given 8 ounces of Ensure clear 3 saul es daily with meals for increased nutrition and will be transition to a regular diet. Charges/Coding Visit Charges Inpatient E&M: 03390 Subs Hosp L2
--- NOTE | 2022-06-07 11:57 | PCM.DC.SUM ---
Providers Date of Admission: 06/03/22 Primary Care Physician: No Primary Care Phys Reason For Visit: CECAL INFLAMMATION Diagnosis Discharge Diagnosis (1) C. difficile colitis: Status: Acute Code(s): A04.72 - Enterocolitis due to Clostridium difficile, not specified as recurrent Plan: Patient with severe C. difficile colitis?as based on white blood cell count greater than 15,000 and radiographic appearance of the cecum. Patient has no history of recent antibiotic use or no proximity to healthcare settings so this should be a community-acquired infection. This is probably related to patient's relatively immunocompromise state and on both Orencia and methotrexate for rheumatoid arthritis. After conferencing with infectious disease and hospitalist service, Mr. Crowder receiving vancomycin 125 mg p.o. every 6 hours x10 days. Patient with significantly improved abdominal discomfort. Improved appetite. Decreased white count. We will plan to advance patient's diet today and monitor for frequency of bowel movements. Patient currently states this is averaging 3 per 24 hours. At this frequency I do believe he should be able to remain hydrated without intravenous fluid infusion. He is hypokalemic today as result of these bowel movements and I am replacing this orally. Will assess for possible discharge either later today or tomorrow. Medications at Discharge Home Medications abatacept 125 mg/mL subcutaneous syringe (Orencia) 125 mg subcut TU rheumatoid arthritis 06/03/22 folic acid 1 mg tablet 1 mg PO DAILY supplement 06/03/22 methotrexate sodium 2.5 mg tablet 15 mg PO TH rheumatoid arthritis 06/03/22 vancomycin 125 mg capsule 125 mg PO Q6H 1 day #4 caps 06/04/22 vancomycin 50 mg/mL oral solution 125 mg (2.5 mL) PO Q6H 10 days #100 mL 06/04/22 vancomycin 125 mg capsule 125 mg PO .QID #30 caps 06/06/22 Hospital Course Operations None Procedures None Summary of Care Provided Hospital Course: Patient is a 21-year-old male who presented on 06/02/2022 with complaints of progressive abdominal discomfort and diarrhea that it got acutely worse over the preceding 24 hours. Laboratories remarkable for a significant leukocytosis of over 21,[address] imaging of the abdomen pelvis demonstrated inflammatory changes about the cecum. Radiology had reported that the appendix was not definitely seen, but appendicitis could not be excluded. Given the area of the patient's tenderness and evidence of significant edema within the mesoappendix, I remained suspicious for possible perforated appendicitis, but was not fully convinced of this diagnosis given the patient's higher than normal white blood cell count and reports of significant diarrhea. Therefore I admitted Mr. Saldaña, but requested a stool study and patient shortly thereafter was confirmed as positive for C. difficile colitis. Along with the stool studies, I also requested evaluation by the hospitalist service given patient's concurrent rheumatoid arthritis treatments. Once patient returned positive for C. difficile, a treatment plan was made in concert with hospitalist service and infectious disease to include use of oral vancomycin. Patient was started on this immediately and his empiric coverage with Zosyn was discontinued. His abdominal exam was serially trended and once he started responding to the antibiotics his diet was slowly advanced. By hospital day 4 his abdominal pain was significantly improved and his stool frequency had decreased to a manageable 2-3 times per day. With these changes he was advanced to a soft, low residue diet and he proved tolerance of this throughout the day. Additionally, hospitalist service was successful in reaching patient's rheumatoid with arthritis care team with the [facility] in [facility] and was given go ahead to hold patient's rheumatoid arthritis medications until he finalize treatment for C. difficile colitis. With this clinical improvement and clearance from rheumatology, the hospitalist service and I discussed discharge of Mr. Saldaña. For his part, patient was eager to be discharged and we repeatedly covered discharge instructions to include faithful compliance with antibiotic regimen, avoidance of others, sterilization of all touched areas, and outpatient follow-up with me in 2 weeks to assure resolution of abdominal discomfort?as well as discuss possible post discharge colonoscopy. With these pieces carefully communicated to patient's care plan, he was granted discharge on 06/06/2022. Weight / BMI Weight Weight: 190 lb 0.615 oz Body Mass Index (BMI) 27.2 ABG / Lab / Microbiology Data Result Diagrams: 06/06/22 04:39 06/06/22 04:39 Laboratory: Laboratory Results - last 24 hr 06/04/22 05:55: Diff Path Review Reviewed 06/05/22 06:00: Diff Path Review Reviewed 06/06/22 04:39: Diff Path Review Reviewed Microbiology: Microbiology 06/03/22 01:50 Stool Enteric Bacteriology - Final 06/03/22 01:50 Stool C. difficile GDH Antigen & Toxins - Final 06/03/22 01:50 Stool C. difficile DNA Amplification - Final D/C Instructions Discharge Diet: No restrictions Weight Bearing Status: Full weight bearing Meaningful Use Info Meaningful Use Diagnoses (Choose all that apply): None applicable Discharge Plan Admission Admit Date/Time: 06/03/22 01:21 Primary Reason for Your Visit: C.diff colitis Attending Provider: Dionisio Cavanaugh Primary Care Provider: Care Physician,No Primary Consulting Providers: Guillermo Foster ; Jason Luna Instructions Forms: Work / School Excuse Additional Instructions / Restrictions: Wipe around your home toilet with a mixture of one part bleach to 9 parts water to sterilize area Discharge Orders/Prescriptions Prescriptions: New vancomycin 50 mg/mL recon soln 125 mg PO Q6H 10 Days Qty: 100 0RF vancomycin 125 mg capsule 125 mg PO Q6H 1 Days Qty: 4 0RF vancomycin 125 mg capsule 125 mg PO .QID Qty: 30 0RF Rx Instructions: start today-two doses today Continued folic acid 1 mg tablet 1 mg PO DAILY Label Comments: TAKE ONE TABLET BY MOUTH ONCE A DAY Held methotrexate sodium 2.5 mg tablet 15 mg PO TH Hold Instructions: Resume on 06/14/22. Orencia 125 mg/mL syringe 125 mg SUBCUT TU Hold Instructions: Resume on 06/14/22. Referrals / Follow Up: Dionisio Cavanaugh MD [Med Staff - Active Staff] - See Referral Note (in two weeks-call for appointment) Care Physician,No Primary [Primary Care Provider] - Disposition Disposition (needs filled in before D/C Order can be placed): Home, Self Care
== END 2022-06-06 18:22 | disposition home or self-care (01) | DRG 372 ==
LOC: ED 23:53 → MS3 06-03 01:51
PROVIDERS: Internal Medicine; Admitting Provider Surgery; Emergency Provider Emergency Medicine; Visit Provider Surgery
DX: A04.72 Enterocolitis due to Clostridium difficile, not specified as recurrent (principal); D84.9 Immunodeficiency, unspecified; E44.0 Moderate protein-calorie malnutrition; M06.9 Rheumatoid arthritis, unspecified; E87.6 Hypokalemia; Z68.27 Body mass index [BMI] 27.0-27.9, adult
CPT/HCPCS: 36415; 74177; 80048; 80053; 81001; 83735; 84100; 85025; 87177; 87209; 87493; 87506; 97802; 99281; J7030; J7050; Q9967; A4216; J2405

== ENCOUNTER 2023-09-09 17:39 | Emergency (ER) | payer OTHER, SELFPAY ==
[2023-09-09 17:40] VITALS: BP 164/86; PULSE 86; RESP 14; TEMP 36.6; O2SAT 99
--- NOTE | 2023-09-09 19:17 | EX.ED.DYSGE1 ---
HPI <YAEL Lei - Last Filed: 09/09/23 19:20> History of Present Illness Chief Complaint: Bite Narrative Narrative: Patient is a 22-year-old male with history of rheumatoid arthritis who presents to the emergency department with complaints of concern of a brissa to his left forearm. Patient currently attends the [email or web address], he had multiple sightings of bats in a dormitories. Patient states that he woke up with 2 small holes in his left arm. He went to the school nurse who told him to come to the [facility] apartment for a rabies vaccination. Patient denies any symptoms. [facility] <YAEL Lei - Last Filed: 09/09/23 19:20> [facility] Medical History (Updated 09/09/23 @ 19:46 by Amina Pedraza) H/O Clostridium difficile infection Rheumatoid arthritis Home Medications abatacept 125 mg/mL subcutaneous syringe ([employer]) 125 mg subcut TU rheumatoid arthritis 06/03/22 [History Last Taken 05/31/22] folic acid 1 mg tablet 1 mg PO DAILY supplement 06/03/22 [History Last Taken 06/02/22] methotrexate sodium 2.5 mg tablet 15 mg PO TH rheumatoid arthritis 06/03/22 [History Last Taken 05/26/22] Allergy/AdvReac Type Severity Reaction Status Date / Time insect venom [insects] Allergy Rash Verified 09/09/23 17:40 peach Allergy Swelling Verified 09/09/23 17:40 Surgical History (Updated 09/09/23 @ 19:46 by Amina Pedraza) H/O wisdom tooth extraction [place] teeth extracted Social History Smoking Status: Never smoker ROS <YAEL Lei - Last Filed: 09/09/23 19:20> ROS ED ROS Narrative Constitutional: No fever, no chills. HEENT: No sore throat. No neck pain. No loss of vision. No rhinorrhea. Cardiovascular: No chest pain. No palpitations. No pedal edema. Respiratory: No cough, no shortness of breath. Abdominal: No abdominal pain. No nausea. No vomiting. Genitourinary: No dysuria. No hematuria. Musculoskeletal: No myalgias. No arthralgias. Neurologic: No headaches. No dizziness. No lightheadedness. Skin: No rash. No change in color. Positive for 2 reeder to his left forearm Psychiatric: No depression. No anxiety. EXAM <YAEL Lei - Last Filed: 09/09/23 19:20> Physical Exam Narrative Exam Narrative: Afebrile. Vital signs noted. HEENT: Normocephalic. Atraumatic. PERRL, EOMI. Neck soft and supple. No point tenderness or step off. Cardiovascular: Regular rate and rhythm. No murmurs, rubs, or gallops appreciated. Respiratory: No tachypnea. Lungs clear to auscultation bilaterally. Gastrointestinal: Abdomen soft, nontender, with normoactive bowel sounds. No rebound or guarding. Neurological: Awake. Alert. Nonfocal, nonlateralizing. Skin: No rash. Normal color. No pallor. Patient has 2 small what appear to be abrasions to his left forearm. They would look like fang reeder if the bat bit the patient. There is no erythema. Patient is full range of motion, patient has no pain. Musculoskeletal: No pedal edema. Full range of motion extremities. Const Vital Signs: 09/09/23 17:40 Temperature 98 F Temperature Source Temporal Pulse Rate 86 Respiratory Rate 14 Blood Pressure 164/86 H Blood Pressure Mean 112 Pulse Ox 99 Oxygen Delivery Method Room Air <Dr. Donnie Shelton MD - Last Filed: 09/09/23 20:06> Physical Exam Const Vital Signs: 09/09/23 17:40 Temperature 98 F Temperature Source Temporal Pulse Rate 86 Respiratory Rate 14 Blood Pressure 164/86 H Blood Pressure Mean 112 Pulse Ox 99 Oxygen Delivery Method Room Air MDM <YAEL Lei - Last Filed: 09/09/23 19:20> [facility] Treatment and Re-Evaluation :: Patient appears generally well, patient appears nontoxic, vital signs are stable. Present to the emergency department for vaccination and immunoglobulin of the rabies vaccination secondary to reeder on his left forearm. Patient will need to come back on day 3 7 and 14. Patient be given the vaccination as well as the immunoglobulin today. All questions answered, patient struck to return for the other immunizations. <Dr. Donnie Shelton MD - Last Filed: 09/09/23 20:06> [facility] Narrative Medical decision making narrative: I have personally performed a face to face assessment of the patient and have reviewed the ANDREA Note. I performed a substantive portion of the visit including all aspects of the following. My ibarra findings include: History: Patient is concerned that he may have gotten bitten with a bat. He states a couple reeder on his left forearm. He has no symptoms though. No known bat but he does live in the dorms where bats are known to be. Exam: There are couple small superficial scabs of this forearm. But no erythema or inflammation. Medical Decision Making: Patient will have rabies treatment initiated. Discharge Plan Triage Chief Complaint: Bite ED Midlevel Provider: Juan Moe ED Provider: Donnie Shetlon Dx/Rx/DC Orders Clinical Impression: Bat bite wound Instructions: ED Animal Bite (General) Prescriptions: No Action methotrexate sodium 2.5 mg tablet 15 mg PO TH Hold Instructions: Resume on 06/14/22. folic acid 1 mg tablet 1 mg PO DAILY Patient Comments: TAKE ONE TABLET BY MOUTH ONCE A DAY Orencia 125 mg/mL syringe 125 mg SUBCUT TU Hold Instructions: Resume on 06/14/22. Primary Care Provider: Care Physician,No Primary Referrals: Care Physician,No Primary [Primary Care Provider] - Activity Restrictions/Additional Instructions: You need to return for your immunizations on day 3, 7, day 14, this is all starting on September 09, 2023. Disposition Disposition: Home, Self Care
[2023-09-09] MEDS: Rabies Vaccine,Human Diploid 2.5 UNITS Vial IM (19:48)
[2023-09-09] MEDS: Rabies Immune Globulin/PF 300 UNIT/ML, 5 ML VIAL 1700 UNIT IM (19:59)
== END 2023-09-09 20:07 | disposition home or self-care (01) ==
LOC: ED 19:29
PROVIDERS: Emergency Provider Emergency Medicine; Visit Provider Emergency Medicine
DX: S51.852A Open bite of left forearm, initial encounter (principal); M06.9 Rheumatoid arthritis, unspecified; Z79.899 Other long term (current) drug therapy; W55.81XA Bitten by other mammals, initial encounter; Y92.214 College as the place of occurrence of the external cause
CPT/HCPCS: 90675; 99283; 90375

== ENCOUNTER 2023-09-12 18:05 | Outpatient (CLI) | payer OTHER, SELFPAY ==
[2023-09-12 18:06] VITALS: BP 118/78; PULSE 78; RESP 16; TEMP 36.4; O2SAT 97; BMI 25.1
[2023-09-12 18:19] VITALS: BP 118/76; PULSE 78; RESP 16; TEMP 37.2; O2SAT 97; BMI 27.3
[2023-09-12] MEDS: Rabies Vaccine,Human Diploid 2.5 UNITS Vial IM (18:22)
[2023-09-12 18:29] VITALS: BP 120/78; PULSE 76; RESP 14; TEMP 36.4; O2SAT 99
== END 2023-09-12 18:36 | disposition home or self-care (01) ==
LOC: ED 18:37
DX: Z23 Encounter for immunization (principal)
CPT/HCPCS: 90675; 96372

== ENCOUNTER 2023-09-16 18:00 | Outpatient (CLI) | payer OTHER, SELFPAY ==
[2023-09-16 18:05] VITALS: BP 146/82; PULSE 87; RESP 16; TEMP 35.6; BMI 27.2
[2023-09-16] MEDS: Rabies Vaccine,Human Diploid 2.5 UNITS Vial IM (18:58)
== END 2023-09-16 19:03 | disposition home or self-care (01) ==
PROVIDERS: Visit Provider Emergency Medicine
DX: Z23 Encounter for immunization (principal)
CPT/HCPCS: 90675; 96372

== ENCOUNTER → 2023-09-23 | Outpatient (CLI) | payer OTHER, SELFPAY ==
[2023-09-23 18:25] VITALS: BP 153/82; PULSE 81; RESP 16; TEMP 36.2; O2SAT 99; BMI 170.7
[2023-09-23 18:28] VITALS: BMI 27.3
[2023-09-23] MEDS: Rabies Vaccine,Human Diploid 2.5 UNITS Vial IM (18:36)
== END | disposition home or self-care (01) ==
DX: Z23 Encounter for immunization (principal)
CPT/HCPCS: 90675; 96372